=== PATIENT | female | born 1955 | race Caucasian/White ===

== ENCOUNTER → 2016-05-07 | Outpatient (CLI) | payer OTHER ==
[~2016-05-07] MED LIST: AMLO-110 PO; ASPI81TA21 PO; ATOR-26 PO; FURO-85 PO; LISI40TA PO; METO25TA56 PO; NITR0.4D6 SL; OMEG10007 PO; PLV75 PO; black cohash PO
[2016-05-07 17:59] LABS: BLOOD UREA NITROGEN 23 mg/dl (7-18); BUN/CREATININE RATIO 17.7 (10-20); CALCIUM 9.6 mg/dl (8.5-10.1); CARBON DIOXIDE 27 mmol/L (21-32); CHLORIDE 106 mmol/L (98-107); GLUCOSE 90 mg/dl (70-99); MAGNESIUM 2.1 mg/dl (1.8-2.4); SODIUM 143 mmol/L (136-145)
== END | disposition home or self-care (01) ==
LOC: C.LAB1850 16:01
PROVIDERS: ATTEND Internal Medicine
DX: G47.62 Sleep related leg cramps (principal); E66.01 Morbid (severe) obesity due to excess calories; Z68.41 Body mass index [BMI] 40.0-44.9, adult

== ENCOUNTER → 2016-10-31 | Outpatient (CLI) | payer OTHER ==
[2016-10-31 11:26] LABS: ALT/SGPT 28 U/L (12-78); AST/SGOT 14 U/L (15-37); BLOOD UREA NITROGEN 23 mg/dl (7-18); BUN/CREATININE RATIO 20.6 (10-20); CARBON DIOXIDE 27 mmol/L (21-32); CHLORIDE 109 mmol/L (98-107); CHOLESTEROL 152 mg/dl (0-200); GLUCOSE 93 mg/dl (70-99); POTASSIUM 4.3 mmol/L (3.5-5.1); SODIUM 141 mmol/L (136-145); TRIGLYCERIDES 126 mg/dl (0-150); VERY LOW DENSITY LIPOPROT CALC 25 mg/dl
[2016-10-31 11:28] LABS: ALB/GLOB RATIO 1.1 (0.9-2); ALKALINE PHOSPHATASE 46 U/L (45-117); CHOLESTEROL/HDL RATIO 2.9; HDL CHOLESTEROL 52 mg/dl; LDL CHOLESTEROL CALCULATED 75 mg/dl
== END | disposition home or self-care (01) ==
LOC: C.LABBC 09:08
PROVIDERS: ATTEND Internal Medicine
DX: E78.00 Pure hypercholesterolemia, unspecified (principal)

== ENCOUNTER → 2016-11-02 | Outpatient (CLI) | payer OTHER ==
--- NOTE | 2016-11-03 13:31 | MAMMOGRAPHY REPORT ---
BILATERAL DIGITAL SCREENING MAMMOGRAM WITH CAD: 11/02/2016 CLINICAL HISTORY: Routine screening. TECHNIQUE: Current study was also evaluated with a Computer Aided Detection (CAD) system. Bilateral CC and MLO views were obtained. COMPARISON: Comparison is made to exams dated: 11/01/2015 mammogram, 10/29/2014 mammogram, 09/19/2013 m ammogram, 09/15/2012 mammogram, 09/09/2011 mammogram, and 08/08/2010 mammogram - [facility]ter. BREAST COMPOSITION: There are scattered areas of fibroglandular density in both breasts. FINDINGS: No suspicious masses, calcifications, or areas of architectural distortion are noted in ei ther breast. There has been no significant interval change compared to prior exams. IMPRESSION: ACR BI-RADS CATEGORY 1: NEGATIVE There is no mammographic evidence of malignancy. A 1 year screening mammogram is recommended. The pa tient will receive written notification of the results. Approximately 10% of breast cancers are not detected with mammography. A negative mammographic report should not delay biopsy if a clinically suggestive mass is present. Carmenza Main M.D. ah/:11/02/2016 16:15:30 [place]: Stiven ANN(R)(M), [facility] letter sent: Normal 1/2 BI-RADS Code: ACR BI-RADS Category 1: Negative
== END | disposition home or self-care (01) ==
LOC: C.MAMM 15:00
PROVIDERS: ATTEND Internal Medicine
DX: Z12.31 Encounter for screening mammogram for malignant neoplasm of breast (principal)

== ENCOUNTER → 2017-05-01 | Outpatient (CLI) | payer OTHER ==
[2017-05-01 11:24] LABS: ALBUMIN 3.8 gm/dl (3.4-5.0); ALKALINE PHOSPHATASE 48 U/L (45-117); ALT/SGPT 35 U/L (12-78); BLOOD UREA NITROGEN 23 mg/dl (7-18); CALCIUM 8.9 mg/dl (8.5-10.1); CARBON DIOXIDE 28 mmol/L (21-32); CREATININE 1.17 mg/dl (0.60-1.20); GLUCOSE 95 mg/dl (70-99); TOTAL PROTEIN 7.6 gm/dl (6.4-8.2)
[2017-05-01 11:27] LABS: POTASSIUM 4.5 mmol/L (3.5-5.1); SODIUM 139 mmol/L (136-145)
[2017-05-01 11:28] LABS: CHOLESTEROL 161 mg/dl (0-200); LDL CHOLESTEROL CALCULATED 76 mg/dl
[2017-05-01 11:32] LABS: AST/SGOT 21 U/L (15-37)
== END | disposition home or self-care (01) ==
LOC: C.LAB1850 09:10
PROVIDERS: ATTEND Internal Medicine
DX: E78.00 Pure hypercholesterolemia, unspecified (principal); E55.9 Vitamin D deficiency, unspecified

== ENCOUNTER → 2017-11-03 | Outpatient (CLI) | payer OTHER ==
[~2017-11-03] MED LIST changes: -AMLO-110 PO; +AMLO5TAB3 PO; +ASPI-319 PO; -ASPI81TA21 PO
--- NOTE | 2017-11-04 07:56 | MAMMOGRAPHY REPORT ---
BILATERAL DIGITAL SCREENING MAMMOGRAM TOMOSYNTHESIS WITH CAD: 11/03/2017 CLINICAL HISTORY: Routine screening examination. TECHNIQUE: The study was acquired using full field digital technology and interpreted from soft copy. Breast tomosynthesis in addition to standard 2D mammography was performed. Current study was also ev aluated with a Computer Aided Detection (CAD) system. COMPARISON: Comparison is made to exams dated: 11/02/2016 mammogram, 11/01/2015 mammogram, 11/08/2014 m ammogram, 10/29/2014 mammogram, 12/26/2013 ultrasound, and 12/26/2013 mammogram - [facility]. BREAST COMPOSITION: There are scattered areas of fibroglandular density in both breasts. FINDINGS: There are several benign rim calcifications in the right breast. No suspicious mass, meri ectural distortion or cluster of microcalcifications is seen. IMPRESSION: ACR BI-RADS CATEGORY 1: NEGATIVE There is no mammographic evidence of malignancy. A 1 year screening mammogram is recommended.( 019) The patient will receive written notification of the results. Some breast cancers are not detected with mammography. A negative mammographic report should not malachi y biopsy if a clinically suggestive mass is present. Rupali Garcia M.D. ay/:11/03/2017 16:41:15 Chicken Handler: RT Bernardo(Sunita)(M), [facility] letter sent: Normal 1/2 BI-RADS Code: ACR BI-RADS Category 1: Negative
== END | disposition home or self-care (01) ==
LOC: C.MAMM 15:33
PROVIDERS: ATTEND Internal Medicine
DX: Z12.31 Encounter for screening mammogram for malignant neoplasm of breast (principal)

== ENCOUNTER → 2017-11-16 | Outpatient (CLI) | payer OTHER | END | disposition home or self-care (01) | LOC: C.LAB1850 14:52 | PROVIDERS: ATTEND Internal Medicine | DX: R79.89 Other specified abnormal findings of blood chemistry (principal) ==

== ENCOUNTER 2021-01-02 19:27 | Inpatient (IN) ==
[2021-01-03 02:05] LABS: Hematocrit (blood only) 35.9 % (37-47); Hemoglobin 12.1 g/dL (12.0-16.0); Immature Granulocytes # (auto) 0.01 K/uL (0.00-0.02); Immature Granulocytes % (auto) 0.4 %; Lymphocytes # (auto) 0.49 K/uL (1.2-3.4); Lymphocytes % (auto) 19.8 %; Mean Corpuscular Hemoglobin 31.3 pg (25-34); Mean Corpuscular Hgb Conc 33.7 g/dL (32-36); Mean Platelet Volume 11.3 fL (7.4-10.4); Monocytes # (auto) 0.19 K/uL (0.11-0.59); Monocytes % (auto) 7.7 %; Neutrophils # (auto) 1.79 K/uL (1.4-6.5); Neutrophils % (auto) 72.1 %; Platelet Count 139 K/uL (130-400); RDW Coefficient of Variation 13.4 % (11.5-14.5); RDW Standard Deviation 45.7 fL (36.4-46.3); Red Blood Count 3.86 M/uL (4.2-5.4); White Blood Count 2.48 K/uL (4.8-10.8)
[2021-01-03 02:10] LABS: Partial Thromboplastin Ratio 1.1
[2021-01-03] MEDS ORDERED: DEXAMETHASONE SOD INJ 4 MG/ML VIAL IV STA (02:11)
[2021-01-03 02:15] LABS: Alanine Aminotransferase 31 U/L (12-78); Albumin Level 3.9 gm/dl (3.4-5.0); Alkaline Phosphatase 55 U/L (45-117); Aspartate Aminotransferase 35 U/L (15-37); BUN Creatinine Ratio 17.4 (10-20); Bilirubin,Total 0.4 mg/dl (0.2-1); Blood Urea Nitrogen 33 mg/dl (7-18); Calcium 8.7 mg/dl (8.5-10.1); Carbon Dioxide 24 mmol/L (21-32); Chloride 103 mmol/L (98-107); Creatinine Clr Calc Pharmacy 33.4 ml/min; Est GFR (African American) 31.6 ml/min; Est GFR (Non-African American) 27.2 ml/min; Globulin 3.9 gm/dl (2.5-4.0); Glucose 105 mg/dl (70-99); Lipase 114 U/L (73-393); Potassium 4.1 mmol/L (3.5-5.1); Sodium 135 mmol/L (136-145); Total Protein 7.8 gm/dl (6.4-8.2); Troponin I < 0.015 ng/ml (0-0.045)
--- NOTE | 2021-01-03 03:36 | History & Physical Report ---
Date of Service January 03, 2021 Assessment & Plan (1) Pneumonia due to COVID-19 virus: Plan: 65 yo F w/ pMHx. of CAD s/p 3 stents most recently in 2015, HTN, and hypercholesterolemia who is presenting with cough and chest pain found to be COVID-19 positive. Pneumonia due to COVID-19 virus Day of illness 6 with cough, chest pain, diarrhea CXR without significant opacifications lactate 1.2, WBC 2.48 placed on airborne precautions admitted to med/surg w/ tele - titrate oxygen to saturation 92% - started Remdesivir - started Azithromycin 500 mg IV daily - started Dexamethasone 6 mg daily for 10 days - started guaifenesin Q6H - started Tessalon p. - started Albuterol HFA scheduled and PRN along with PRN duonebs Chest pain with history of CAD s/p stents initially troponin <0.015, lipase nl. - f/u AM troponin - continue DAPT - continue statin SMITHA likely due to poor oral intake and increased output with diarrhea cr. elevated at 1.92 - IVF X2bags at 125/hr. - recheck am BMP Leg cramps likely due to dehydration - Venous duplex bilaterally to rule out DVT HTN - continue chlorthalidone, Imdur, lisinopril, metoprolol - holding Lasix as patient appears dry Code: full Diet: regular DVT: Lovenox 40 Q12H History of Present Illness Chief Complaint: cough Primary Care Provider: Za Ramos MD Neida Erazo is a 65-year-old female with a past medical history of CAD s/p 3 stents most recently in 2015, HTN, and hypercholesterolemia who is presenting with cough and chest pain. She developed symptoms on Wednesday and tried 3 days of vics to help with the cough. She then developed a chest pain in her central chest that is worse with cough and she relates to her cough but also felt similar to prior to her stent being placed. The pain is worse with activity and does have some shortness of breath with it. She was driving to work at [employer] and has been getting progressively more tired which lead her to come to get evaluated in the ER. She has lost her taste and smell yesterday and had diarrhea today. She has not been able to keep much fluids down as she has felt stomach upset. She notes that she had some leg cramps in her left leg. She is not currently short of breath, denies weakness, fevers, vomiting, rash. Vaccinated against COVID-19 with [employer] in June. Allergies Allergy/AdvReac Type Severity Reaction Status Date / Time No Known Drug Allergies Allergy NKDA Verified 01/03/21 02:08 Home Medications Medication Instructions Recorded Confirmed Type aspirin 81 mg tablet,delayed 81 mg PO HS 08/04/18 01/03/21 History release cholecalciferol (vitamin D3) 125 5,000 unit PO QPM 08/04/18 01/03/21 History mcg (5,000 unit) tablet (Vitamin D3) nitroglycerin 0.4 mg sublingual 0.4 mg SUBLINGUAL UD PRN #20 tab 03/12/20 01/03/21 Rx tablet metoprolol tartrate 25 mg tablet 25 mg PO BID #180 tab 04/19/20 01/03/21 Rx oxybutynin chloride 10 mg 10 mg PO QAM #90 tab 05/27/20 01/03/21 Rx tablet,extended release 24 hr furosemide 20 mg tablet 20 mg PO QAM PRN #30 tab 09/03/20 01/03/21 Rx atorvastatin 80 mg tablet 80 mg PO HS #90 tab 09/10/20 01/03/21 Rx clopidogrel 75 mg tablet 75 mg PO QAM #90 tab 09/10/20 01/03/21 Rx chlorthalidone 25 mg tablet 25 mg PO DAILY #30 tab 12/02/20 01/03/21 Rx isosorbide mononitrate 60 mg 60 mg PO QAM #90 tab 12/13/20 01/03/21 Rx tablet,extended release 24 hr lisinopril 40 mg tablet 40 mg PO QAM #90 tab 12/13/20 01/03/21 Rx levothyroxine 50 mcg capsule 50 mcg PO DAILY #30 cap 12/20/20 01/03/21 Rx Pro [place] Joint Extra 2,000 mg PO DAILY 12/31/20 01/03/21 History Past Med/Surg History Medical History (Updated 01/03/21 @ 22:51 by Monisha Grey DO) History of angina Hyperlipidemia Hypertension On anticoagulant therapy plavix daily Osteoarthritis Surgical History History of appendectomy History of bilateral tubal ligation History of cardiac cath x3--last 2014 @ [facility] History of carpal tunnel release of both wrists History of colonoscopy History of dilatation and curettage History of heart artery stent x3-- (2) History of root canal procedure History of tooth extraction all upper teeth removed/some lower History of total abdominal hysterectomy and bilateral salpingo-oophorectomy History of wisdom tooth extraction Family History Mother Family history of reaction to anesthesia nausea/vomiting Ovarian cancer Grandmother (Maternal) Family history of diabetes mellitus Father Myocardial infarction Brother Melanoma Denies family history of Prostate cancer Breast cancer Colorectal cancer Social History Smoking Status: Never smoker Second Hand Exposure: Yes ( smoked/parents smoked); Hx Alcohol Use: No Hx Substance Use: No Preferred Language: Guyanese Communication Ability: Effective Visual Impairment: No Limitations Hearing Ability: Normal Cable Television Technician Required: No Beliefs That Will Affect Care: Orthodox marital status: Current Living Situation: Spouse current occupational status: unemployed How many Children do You have: 0 Feels Safe at Home: Yes Safety Concerns: Feels Safe At This Time Dental Care, Regularly: Yes Physical Activity Frequency: Does not Exercise Seatbelt Use: always Sunscreen Use: Yes Assistive Devices: None Review of Systems Review of Systems: All systems reviewed & are unremarkable except as noted in HPI & below Physical Exam Constitutional: well developed and well nourished; no acute distress Eyes: PERRL, conjunctivae normal, anicteric sclerae ENMT: external ear and nose normal, oropharynx normal Neck: normal visual inspection Respiratory: normal respiratory effort, lungs clear to auscultation normal respiratory effort; no respiratory distress and no labored breathing Cardiovascular: RRR, no murmur, no edema Extremities: no pedal edema Gastrointestinal (Abdomen): normal bowel sounds, soft, nontender, no hepatosplenomegaly Skin: no rashes, warm and dry Neurologic: no focal motor deficits Psychiatric: A+Ox3, euthymic affect Results & Data Results & Data ([facility]) Vital Signs (Past 12 Hours) Vital Signs Temp Pulse Pulse Resp BP BP Pulse Ox 01/03/21 02:00 92 H 20 156/95 H 93 01/03/21 00:44 97 H 17 94 01/02/21 23:59 95 H 18 138/84 93 01/02/21 19:35 37.4 C 97 H 20 153/79 H 98 CBC Results Results Complete Blood Count Results: RBC 3.86 M/uL (4.2-5.4) L 01/03/21 WBC 2.48 K/uL (4.8-10.8) L 01/03/21 Hgb 12.1 g/dL (12.0-16.0) 01/03/21 Hct 35.9 % (37-47) L 01/03/21 Plt Count 139 K/uL (130-400) 01/03/21 Chemistry (BMP) Results BMP Results: Sodium 134 mmol/L (136-145) L 01/03/21 Potassium 3.6 mmol/L (3.5-5.1) 01/03/21 Chloride 104 mmol/L (98-107) 01/03/21 BUN 31 mg/dl (7-18) H 01/03/21 Creatinine 1.62 mg/dl (0.6-1.2) H 01/03/21 Glucose 127 mg/dl (70-99) H 01/03/21 Supervising Physician Co-Signing Physician Notes Attending addendum: I have physically seen this patient, have supervised the medical residents activities, and agree with the H&P unless as otherwise noted. Assessment and Plan: Pneumonia due to COVID-19 virus with hypoxia- Admit to medical telemetry Given dexamethasone 10 mg IV by the ED Dexamethasone 6 mg IV every morning Remdesivir IV per protocol Azithromycin 500 mg IV daily Albuterol HFA 2 puffs 4 times daily, and every 2 hours as needed DuoNebs every 2 hours as needed Guaifenesin extended release 1200 mg p.o. twice daily Tessalon Perles 1 mg p.o. 3 times daily as needed Chest pain/CAD/history of stent in LAD/hypertension- The patient will be admitted to telemetry for serial cardiac enzymes, serial EKG's, cardiac rhythm monitoring and a 2-D echocardiogram with Dopplers. Continue aspirin, clopidogrel, isosorbide mono nitrate, metoprolol tartrate. SMITHA- Hold lisinopril and chlorthalidone NSS at high 25 mils per hour x2 L Repeat laboratories in a.m. Remaining orders and notations as noted Resident Activity Tracking Resident Involvement: Resident Care Provided Care Provided: Adult [facility]
[2021-01-03] MEDS ORDERED: REMDESIVIR 200 MG in SODIUM CHLORIDE 0.9% 210 ML IV STA (04:37)
--- NOTE | 2021-01-03 04:49 | Emergency Department Note ---
Impression & Plan COVID-19, Pneumonia Admit to the [facility] ED Provider Note NAME: JAMSHID FENTON AGE: 65 SEX: F ARRIVES VIA: Walk-In INFORMANT: Patient ED PROVIDER(S): Monisha Grey DO CHIEF COMPLAINT: Chest pain with deep breathing PLAN: Disposition: Admit to the [facility] Condition: Guarded MEDICAL DECISION MAKING: This is a 65-year-old female patient with a history of coronary artery disease who presents to the emergency department complaining of chest discomfort with coughing and deep breathing. Patient had a normal-appearing EKG and negative troponin. However patient does have a positive Covid test and bilateral pneumonias despite being vaccinated. Patient has a mildly elevated creatinine. Her chest x-ray is consistent with bilateral Covid pneumonia. I discussed the case with the [facility] Hospitalist and they will evaluate for further management. Triage Nursing notes reviewed and agree with them. Prior medical records reviewed Vital Signs: reviewed and unremarkable Differential diagnosis: Aortic dissection, PE, costochondritis, pneumonia, bronchitis ER treatment provided: IV Decadron Diagnostics interpreted by me: ECG: Normal sinus rhythm at a rate of [address] segment elevation or signs of ischemia. There is no ectopy. QTC is 430 ms. Cardiac Monitoring: Normal sinus rhythm at 93 Laboratory studies: See below Imaging studies: As per my interpretation Portable chest x-ray: Bilateral pulmonary opacities consistent with Covid pneumonia HPI: 65/F arrives for evaluation of chest discomfort. Patient developed a stuffy nose, cough and cold symptoms approximately 5 days ago. She states that she put Vicks on her feet because she felt so tired. Her symptoms drastically worsened today when she felt like there were a ton of bricks on her chest as she describes it. She states that her chest hurts worse when she takes a deep breath or she coughs. She also had some diarrhea and nausea. She describes her cough as nonproductive. The patient has a past medical history of coronary artery disease with 3 previous stents placed. The patient is vaccinated against COVID-19. ROS: See above HPI for pertinent positives & negatives. A total of 10 systems reviewed and were otherwise negative. PAST MEDICAL HISTORY:See Below PAST SURGICAL HISTORY:See Below FAMILY HISTORY:See Below SOCIAL HISTORY:See Below HOME MEDICATIONS:See list ALLERGIES:None VITALS:See Below PHYSICAL EXAMINATION: HEENT: Head - normocephalic and atraumatic Pupils are equal, round, and reactive to light. Extraocular eye muscles are intact, and sclera are anicteric. Nose - moist nasal mucosa without discharge. Mouth - moist buccal mucosa. Oropharynx is nonerythematous and there is no tonsillar exudate or edema noted. Neck: Supple; no JVD, nuchal rigidity, cervical lymphadenopathy, or auscultated bruits. Heart: Regular rate and rhythm. There is a normal S1 and S2 with no murmurs, clicks, or gallops appreciated. Lungs: Clear to auscultation bilaterally with no wheezes, rales, or rhonchi. Abdomen: Soft, completely nontender, nondistended, with good bowel sounds. There are no palpable pulsatile masses or hepatosplenomegaly. There is no guarding, rigidity, or rebound noted. Extremities: No evidence of cyanosis, clubbing, or edema. There are easily palpable peripheral pulses. Skin: warm and dry with good turgor and no rashes. ED COURSE: Times/Reassessments: 0005: Patient was evaluated in room A2. I donned complete PPE as there was concern for COVID-19. A complete history and physical was performed. Covid testing was performed. An order was placed for continuous cardiac monitoring. The patient was in a normal sinus rhythm at a rate of 93. A twelve-lead EKG was obtained. A portable chest x-ray was performed. The patient was given 10 mg of IV Decadron. I reviewed the results of the laboratory studies and chest x-ray findings with the patient. I discussed the case with the [facility] hospitalist and they will evaluate for further management. Monisha Grey DO Past Med/Surg History Medical History (Updated 01/03/21 @ 22:51 by Monisha Grey DO) History of angina Hyperlipidemia Hypertension On anticoagulant therapy plavix daily Osteoarthritis Surgical History History of appendectomy History of bilateral tubal ligation History of cardiac cath x3--last [address] [facility] [place] History of carpal tunnel release of both wrists History of colonoscopy History of dilatation and curettage History of heart artery stent x3-- (2) History of root canal procedure History of tooth extraction all upper teeth removed/some lower History of total abdominal hysterectomy and bilateral salpingo-oophorectomy History of wisdom tooth extraction Family History Mother Family history of reaction to anesthesia nausea/vomiting Ovarian cancer Grandmother (Maternal) Family history of diabetes mellitus Father Myocardial infarction Brother Melanoma Denies family history of Prostate cancer Breast cancer Colorectal cancer Social History Smoking Status: Never smoker Second Hand Exposure: Yes ( smoked/parents smoked); Hx Alcohol Use: No Hx Substance Use: No Preferred Language: Ivorian Communication Ability: Effective Visual Impairment: No Limitations Hearing Ability: Normal Coremaker Required: No Beliefs That Will Affect Care: Adventist marital status: Current Living Situation: Spouse current occupational status: unemployed How many Children do You have: 0 Feels Safe at Home: Yes Safety Concerns: Feels Safe At This Time Dental Care, Regularly: Yes Physical Activity Frequency: Does not Exercise Seatbelt Use: always Sunscreen Use: Yes Assistive Devices: None Allergies Allergies Allergy/AdvReac Type Severity Reaction Status Date / Time No Known Drug Allergies Allergy NKDA Verified 01/03/21 02:08 Home Meds Home Medications Medication Instructions Recorded Confirmed aspirin 81 mg tablet,delayed 81 mg PO HS 08/04/18 01/03/21 release cholecalciferol (vitamin D3) 125 5,000 unit PO QPM 08/04/18 01/03/21 mcg (5,000 unit) tablet (Vitamin D3) Pro [employer] Extra 2,000 mg PO DAILY 12/31/20 01/03/21 Previous Rx's Medication Instructions Recorded nitroglycerin 0.4 mg sublingual 0.4 mg SUBLINGUAL UD PRN #20 tab 03/12/20 tablet metoprolol tartrate 25 mg tablet 25 mg PO BID #180 tab 04/19/20 oxybutynin chloride 10 mg 10 mg PO QAM #90 tab 05/27/20 tablet,extended release 24 hr furosemide 20 mg tablet 20 mg PO QAM PRN #30 tab 09/03/20 atorvastatin 80 mg tablet 80 mg PO HS #90 tab 09/10/20 clopidogrel 75 mg tablet 75 mg PO QAM #90 tab 09/10/20 chlorthalidone 25 mg tablet 25 mg PO DAILY #30 tab 12/02/20 isosorbide mononitrate 60 mg 60 mg PO QAM #90 tab 12/13/20 tablet,extended release 24 hr lisinopril 40 mg tablet 40 mg PO QAM #90 tab 12/13/20 levothyroxine 50 mcg capsule 50 mcg PO DAILY #30 cap 12/20/20 Results & Data (ED) Vital Signs Vital Signs - 24 hr 01/02/21 23:59 01/03/21 00:44 01/03/21 02:00 Pulse Rate 97 H 92 H Pulse Rate [Apical] 95 H Respiratory Rate 18 17 20 Blood Pressure 156/95 H Blood Pressure [Right Arm] 138/84 Blood Pressure Mean 115 Blood Pressure Mean [Right Arm] 102 Blood Pressure Position [Right Arm] Sitting Pulse Oximetry 93 94 93 Oxygen Delivery Method Room Air Room Air Room Air 01/03/21 03:37 Pulse Rate Pulse Rate [Apical] 93 H Respiratory Rate 18 Blood Pressure Blood Pressure [Right Arm] 124/73 Blood Pressure Mean Blood Pressure Mean [Right Arm] 90 Blood Pressure Position [Right Arm] Pulse Oximetry 93 Oxygen Delivery Method Room Air Laboratory Data Result diagrams: 01/03/21 01:22 01/03/21 06:13 Lab Results 01/03/21 01/03/21 01/03/21 Range/Units 00:37 00:48 00:48 WBC (4.8-10.8) K/uL RBC (4.2-5.4) M/uL Hgb (12.0-16.0) g/dL Hct (37-47) % MCV (80-100) fL MCH (25-34) pg MCHC (32-36) g/dL RDW Std Deviation (36.4-46.3) fL RDW Coeff of Clare (11.5-14.5) % Plt Count (130-400) K/uL MPV (7.4-10.4) fL Immature Gran % (Auto) % Neut % (Auto) % Lymph % (Auto) % [place] % (Auto) % Eos % (Auto) % Baso % (Auto) % Neut # (Auto) (1.4-6.5) K/uL Lymph # (Auto) (1.2-3.4) K/uL [place] # (Auto) (0.11-0.59) K/uL Eos # (Auto) (0-0.5) K/uL Baso # (Auto) (0-0.2) K/uL Immature Gran # (Auto) (0.00-0.02) K/uL APTT (21.0-31.0) Seconds PTT Ratio Sodium (136-145) mmol/L Potassium (3.5-5.1) mmol/L Chloride (98-107) mmol/L Carbon Dioxide (21-32) mmol/L Anion Gap (3-11) BUN (7-18) mg/dl Creatinine (0.6-1.2) mg/dl Est Cr Clr Drug Dosing ml/min Est GFR ( Amer) ml/min Est GFR (Non-Af Amer) ml/min BUN/Creatinine Ratio (10-20) Glucose (70-99) mg/dl Lactate (0.4-2.0) mmol/L Calcium (8.5-10.1) mg/dl Total Bilirubin (0.2-1) mg/dl AST (15-37) U/L ALT (12-78) U/L Alkaline Phosphatase (45-117) U/L Troponin I (0-0.045) ng/ml Total Protein (6.4-8.2) gm/dl Albumin (3.4-5.0) gm/dl Globulin (2.5-4.0) gm/dl Albumin/Globulin Ratio (0.9-2) Lipase (73-393) U/L Specimen Hemolysis COVID-19 Eval Order Covid19 at [facility] SARS-CoV-2 (PCR) Cancelled POSITIVE A* 01/03/21 01/03/21 01/03/21 Range/Units 01:22 01:22 01:22 WBC 2.48 L (4.8-10.8) K/uL RBC 3.86 L (4.2-5.4) M/uL Hgb 12.1 (12.0-16.0) g/dL Hct 35.9 L (37-47) % MCV 93.0 (80-100) fL MCH 31.3 (25-34) pg MCHC 33.7 (32-36) g/dL RDW Std Deviation 45.7 (36.4-46.3) fL RDW Coeff of Clare 13.4 (11.5-14.5) % Plt Count 139 (130-400) K/uL MPV 11.3 H (7.4-10.4) fL Immature Gran % (Auto) 0.4 % Neut % (Auto) 72.1 % Lymph % (Auto) 19.8 % [place] % (Auto) 7.7 % Eos % (Auto) 0.0 % Baso % (Auto) 0.0 % Neut # (Auto) 1.79 (1.4-6.5) K/uL Lymph # (Auto) 0.49 L (1.2-3.4) K/uL [place] # (Auto) 0.19 (0.11-0.59) K/uL Eos # (Auto) 0.00 (0-0.5) K/uL Baso # (Auto) 0.00 (0-0.2) K/uL Immature Gran # (Auto) 0.01 (0.00-0.02) K/uL APTT 28.0 (21.0-31.0) Seconds PTT Ratio 1.1 Sodium 135 L (136-145) mmol/L Potassium 4.1 (3.5-5.1) mmol/L Chloride 103 (98-107) mmol/L Carbon Dioxide 24 (21-32) mmol/L Anion Gap 8.0 (3-11) BUN 33 H (7-18) mg/dl Creatinine 1.92 H (0.6-1.2) mg/dl Est Cr Clr Drug Dosing 33.4 ml/min Est GFR ( Amer) 31.6 ml/min Est GFR (Non-Af Amer) 27.2 ml/min BUN/Creatinine Ratio 17.4 (10-20) Glucose 105 H (70-99) mg/dl Lactate (0.4-2.0) mmol/L Calcium 8.7 (8.5-10.1) mg/dl Total Bilirubin 0.4 (0.2-1) mg/dl AST 35 (15-37) U/L ALT 31 (12-78) U/L Alkaline Phosphatase 55 (45-117) U/L Troponin I < 0.015 (0-0.045) ng/ml Total Protein 7.8 (6.4-8.2) gm/dl Albumin 3.9 (3.4-5.0) gm/dl Globulin 3.9 (2.5-4.0) gm/dl Albumin/Globulin Ratio 1.0 (0.9-2) Lipase 114 (73-393) U/L Specimen Hemolysis COVID-19 Eval Order SARS-CoV-2 (PCR) 01/03/21 Range/Units 03:13 WBC (4.8-10.8) K/uL RBC (4.2-5.4) M/uL Hgb (12.0-16.0) g/dL Hct (37-47) % MCV (80-100) fL MCH (25-34) pg MCHC (32-36) g/dL RDW Std Deviation (36.4-46.3) fL RDW Coeff of Clare (11.5-14.5) % Plt Count (130-400) K/uL MPV (7.4-10.4) fL Immature Gran % (Auto) % Neut % (Auto) % Lymph % (Auto) % [place] % (Auto) % Eos % (Auto) % Baso % (Auto) % Neut # (Auto) (1.4-6.5) K/uL Lymph # (Auto) (1.2-3.4) K/uL [place] # (Auto) (0.11-0.59) K/uL Eos # (Auto) (0-0.5) K/uL Baso # (Auto) (0-0.2) K/uL Immature Gran # (Auto) (0.00-0.02) K/uL APTT (21.0-31.0) Seconds PTT Ratio Sodium (136-145) mmol/L Potassium (3.5-5.1) mmol/L Chloride (98-107) mmol/L Carbon Dioxide (21-32) mmol/L Anion Gap (3-11) BUN (7-18) mg/dl Creatinine (0.6-1.2) mg/dl Est Cr Clr Drug Dosing ml/min Est GFR ( Amer) ml/min Est GFR (Non-Af Amer) ml/min BUN/Creatinine Ratio (10-20) Glucose (70-99) mg/dl Lactate 1.2 (0.4-2.0) mmol/L Calcium (8.5-10.1) mg/dl Total Bilirubin (0.2-1) mg/dl AST (15-37) U/L ALT (12-78) U/L Alkaline Phosphatase (45-117) U/L Troponin I (0-0.045) ng/ml Total Protein (6.4-8.2) gm/dl Albumin (3.4-5.0) gm/dl Globulin (2.5-4.0) gm/dl Albumin/Globulin Ratio (0.9-2) Lipase (73-393) U/L Specimen Hemolysis COVID-19 Eval Order SARS-CoV-2 (PCR) Administered Medications Albuterol (Albuterol Hfa 8 Gm Inhaler) 2 puffs INH QIDR YAHAIRA Stop: 02/02/21 10:59 Last Admin: 01/03/21 19:27 Dose: 2 puffs Documented by: [id number] Admin: 01/03/21 15:55 Dose: 2 puffs Documented by: [id number] Admin: 01/03/21 10:42 Dose: 2 puffs Documented by: [id number] Aspirin (Aspirin 81 Mg Ectab) 81 mg PO HS [facility] Stop: 02/02/21 20:59 Last Admin: 01/03/21 20:23 Dose: 81 mg Documented by: [id number] Atorvastatin Calcium (Atorvastatin 40 Mg Tab) 80 mg PO HS [facility] Stop: 02/02/21 20:59 Last Admin: 01/03/21 20:20 Dose: 80 mg Documented by: [id number] Benzonatate (Benzonatate 100 Mg Capsule) 100 mg PO TID [facility] Stop: 02/02/21 08:59 Last Admin: 01/03/21 20:20 Dose: 100 mg Documented by: [id number] Admin: 01/03/21 14:50 Dose: Not Given Documented by: [id number] Admin: 01/03/21 14:00 Dose: 100 mg Documented by: [id number] Chlorthalidone (Chlorthalidone 25 Mg Tab) 25 mg PO DAILY [facility] Stop: 02/02/21 08:59 Last Admin: 01/03/21 08:44 Dose: 25 mg Documented by: [id number] Clopidogrel Bisulfate (Clopidogrel Bisulfate 75 Mg Tab) 75 mg PO QAM YAHAIRA Stop: 02/02/21 08:59 Last Admin: 01/03/21 08:47 Dose: 75 mg Documented by: [id number] Enoxaparin Sodium (Enoxaparin Inj 40 Mg/0.4 Ml Syr) 40 mg SQ Q12H [facility] Stop: 02/02/21 07:59 Last Admin: 01/03/21 20:23 Dose: 40 mg Documented by: [id number] Admin: 01/03/21 08:51 Dose: 40 mg Documented by: [id number] Guaifenesin/Dextromethorphan (Guaifenesin/Dextrom Syrup 200mg/20mg 10ml Udc) 10 ml PO Q6H PRN PRN Reason: Cough Stop: 02/02/21 07:25 Last Admin: 01/03/21 20:20 Dose: 10 ml Documented by: [id number] Azithromycin 500 mg/ Dextrose 255 mls @ 127.5 mls/hr IV Q24H YAHAIRA Stop: 01/10/21 07:59 Last Infusion: 01/03/21 12:29 Dose: 0 mls/hr Documented by: [id number] Admin: 01/03/21 08:47 Dose: 127.5 mls/hr Documented by: [id number] Isosorbide Mononitrate (Isosorbide [place] Extended Rel 60 Mg Tabcr) 60 mg PO QAM YAHAIRA Stop: 02/02/21 08:59 Last Admin: 01/03/21 08:45 Dose: 60 mg Documented by: [id number] Levothyroxine Sodium (Levothyroxine Sodium 50 Mcg Tablet) 50 mcg PO DAILYBB [facility] Stop: 02/02/21 07:44 Last Admin: 01/03/21 08:47 Dose: 50 mcg Documented by: [id number] Metoprolol Tartrate (Metoprolol Tartrate 25 Mg Tab) 12.5 mg PO BID YAHAIRA Stop: 02/02/21 20:59 Last Admin: 01/03/21 20:21 Dose: 12.5 mg Documented by: [id number] Oxybutynin Chloride (Oxybutynin Chloride Xl 5 Mg Tabcr) 10 mg PO QAM YAHAIRA Stop: 02/02/21 08:59 Last Admin: 01/03/21 08:45 Dose: 10 mg Documented by: [id number] Sodium Chloride (Sodium Chloride 0.9% 10ml Flush) 30 ml IV Q24H YAHAIRA Stop: 01/07/21 13:01 Last Admin: 01/03/21 07:30 Dose: 30 ml Documented by: [id number] Vitamin D (Cholecalciferol 1,000 Units 25 Mcg Tab) 5,000 units PO QPM YAHAIRA Stop: 02/02/21 20:59 Last Admin: 01/03/21 20:22 Dose: 5,000 units Documented by: [id number] Vitamin D (Cholecalciferol 1,000 Units 25 Mcg Tab) 1,000 units PO QAM YAHAIRA Stop: 02/02/21 08:59 Last Admin: 01/03/21 08:46 Dose: 1,000 units Documented by: [id number] Zinc Sulfate (Zinc Sulfate 220 Mg Capsule) 220 mg PO QAM YAHAIRA Stop: 02/02/21 08:59 Last Admin: 01/03/21 08:45 Dose: 220 mg Documented by: [id number] Discontinued Medications Dexamethasone (Dexamethasone Sod Inj 4 Mg/Ml Vial) 10 mg IV NOW STA Stop: 01/03/21 02:12 Last Admin: 01/03/21 02:27 Dose: 10 mg Documented by: [id number] Remdesivir 200 mg/ Sodium (Chloride) 250 mls @ 125 mls/hr IV ONE STA; Protocol Stop: 01/03/21 06:36 Last Infusion: 01/03/21 08:30 Dose: 0 mls/hr Documented by: [id number] Admin: 01/03/21 06:20 Dose: 125 mls/hr Documented by: [id number] Sodium Chloride (Nss 1000ml) 1,000 mls @ 125 mls/hr IV .Q8H YAHAIRA Stop: 01/03/21 23:25 Last Admin: 01/03/21 16:59 Dose: 125 mls/hr Documented by: [id number] Infusion: 01/03/21 16:59 Dose: 125 mls/hr Documented by: [id number] Admin: 01/03/21 09:08 Dose: 125 mls/hr Documented by: [id number] Metoprolol Tartrate (Metoprolol Tartrate 25 Mg Tab) 25 mg PO BID YAHAIRA Stop: 02/02/21 08:59 Last Admin: 01/03/21 08:45 Dose: 25 mg Documented by: [id number] Discharge Plan Visit Data Chief Complaint: Chest Pain Stated Complaint: CHEST PAINS, TIRED, COUGH ED Provider: Monisha Grey Discharge Problem: COVID-19, Pneumonia Patient Disposition: Admitted As Inpatient Discharge Instructions Interventions: ED Discharge Assessment Last Done: 01/03/21 12:46 Discharge Problem: Pneumonia Qualifiers: Pneumonia type: due to unspecified organism Laterality: bilateral Lung location: unspecified part of lung Qualified Code(s): J18.9 - Pneumonia, unspecified organism
--- NOTE | 2021-01-03 06:35 | Ultrasound Report ---
BILATERAL LOWER EXTREMITY VENOUS DOPPLER CLINICAL HISTORY: leg pain COMPARISON STUDY: Bilateral lower extremity venous Doppler ultrasound October 10, 2018. TECHNIQUE: Sonography of the deep venous system of the bilateral lower extremities was performed. Co mpression and augmentation were evaluated. FINDINGS: The bilateral common femoral, superficial femoral and popliteal veins were compressible. A ugmentation was normal. Flow was shown within the deep calf vessels. IMPRESSION: No evidence of deep venous thrombus within the bilateral lower extremities. ACT 112: Negative or not required by law. Electronically signed by: Chidi Rodarte M.D. 01/03/2021 6:34 AM
--- NOTE | 2021-01-03 06:40 | XRay Report ---
XR chest 2V PA/lateral CLINICAL HISTORY: Chest Pain COMPARISON STUDY: Chest radiograph March 09, 2011. FINDINGS: Lung volumes are mildly diminished. There is no pneumothorax or pleural effusion. Cardiac s ize is at the upper limits of normal. Mediastinal contours are normal. There is no evidence for pulmo nary edema. There is mild interstitial thickening. There may be a few patchy bilateral opacities. IMPRESSION: A few possible patchy bilateral opacities. An infectious process cannot be excluded. ACT 112: Negative or not required by law. Electronically signed by: Chidi Rodarte M.D. 01/03/2021 6:38 AM
[2021-01-03 06:59] LABS: BUN Creatinine Ratio 19.2 (10-20); Calcium 8.9 mg/dl (8.5-10.1); Creatinine Clr Calc Pharmacy 39.6 ml/min; Est GFR (African American) 38.8 ml/min; Est GFR (Non-African American) 33.4 ml/min; Potassium 3.6 mmol/L (3.5-5.1)
[2021-01-03] MEDS ORDERED: ALBUT/IPRATROP 3MG/0.5MG NEB 3 ML VIAL NEB PRN (07:26)
[2021-01-03] MEDS ORDERED: NITROGLYCERIN SL 0.4 MG/TAB TAB SL PRN (07:26)
[2021-01-03] MEDS ORDERED: POLYETHYLENE (MIRALAX) 17 GM PACK PO PRN (07:26)
[2021-01-03] MEDS ORDERED: ONDANSETRON 4 MG OD TAB PO PRN (07:26)
[2021-01-03] MEDS ORDERED: ALBUTEROL HFA 8 GM INHALER INH PRN (07:26)
[2021-01-03] MEDS ORDERED: ACETAMINOPHEN 325 MG TAB PO PRN (07:26)
[2021-01-03] MEDS: SODIUM CHLORIDE 0.9% 10ML FLUSH IV SCH (07:30)
[2021-01-03] MEDS: OXYBUTYNIN CHLORIDE XL 5 MG TABCR PO SCH (08:45)
[2021-01-03] MEDS: ZINC SULFATE 220 MG CAPSULE PO SCH (08:45)
[2021-01-03] MEDS: ISOSORBIDE MONO EXTENDED REL 60 MG TABCR PO SCH (08:45)
[2021-01-03] MEDS: CHOLECALCIFEROL 1,000 UNITS 25 MCG TAB PO SCH ×2 (08:46→20:22)
[2021-01-03] MEDS: LEVOTHYROXINE SODIUM 50 MCG TABLET PO SCH (08:47)
[2021-01-03] MEDS: AZITHROMYCIN 500 MG in DEXTROSE 5% 250 ML IV SCH (08:47)
[2021-01-03] MEDS: CLOPIDOGREL BISULFATE 75 MG TAB PO SCH (08:47)
[2021-01-03] MEDS: ENOXAPARIN INJ 40 MG/0.4 ML SYR SQ SCH ×2 (08:51→20:23)
[2021-01-03] MEDS ORDERED: [UNRECOGNIZED DRUG - OTHER] PO SCH (09:00)
[2021-01-03] MEDS ORDERED: lisinopril 40 MG TAB PO SCH (09:00)
[2021-01-03] MEDS ORDERED: METOPROLOL TARTRATE 25 MG TAB PO SCH (09:00)
[2021-01-03] MEDS ORDERED: CHLORTHALIDONE 25 MG TAB PO SCH (09:00)
--- NOTE | 2021-01-03 09:01 | Electrocardiogram Report ---
Test Reason : Blood Pressure : / mmHG Vent. Rate : 090 BPM Atrial Rate : 090 BPM P-R Int : 158 ms QRS Dur : 084 ms QT Int : 352 ms P-R-T Axes : 041 014 003 degrees QTc Int : 430 ms Poor data quality, interpretation may be adversely affected Normal sinus rhythm Low voltage QRS Abnormal ECG When compared with ECG of 12-MAR-2011 06:33, No significant change Confirmed by Srinath Molina ([id number] on 01/03/2021 9:01:08 AM Referred By: REFERRED SELF Confirmed By:Srinath Molina
[2021-01-03] MEDS: SODIUM CHLORIDE 0.9% 1000ML 1,000 ML IV SCH ×2 (09:08→16:59)
[2021-01-03] MEDS: ALBUTEROL HFA 8 GM INHALER INH SCH ×3 (10:42→19:27)
[2021-01-03] MEDS: BENZONATATE 100 MG CAPSULE PO SCH ×3 (14:00→20:20)
[2021-01-03] MEDS: guaiFENesin/DEXTROM SYRUP 200MG/20MG 10ML UDC PO PRN (20:20)
[2021-01-03] MEDS: ATORVASTATIN 40 MG TAB PO SCH (20:20)
[2021-01-03] MEDS: METOPROLOL TARTRATE 25 MG TAB PO SCH (20:21)
[2021-01-03] MEDS: ASPIRIN 81 MG ECTAB PO SCH (20:23)
--- NOTE | 2021-01-04 03:58 | Communication Note ---
Date of Service: January 03, 2021 Checked on patient later in the day today after she was admitted to airborne isolation room from the ER late this am. Pt was resting comfortably, talking on the phone w/ her . c/o cough and dyspnea. no substernal chest pain. has lost both her taste & sense of smell. she is requiring 3 L NC O2. she is about 6 days into her illness, perhaps slightly longer. she is fully vaccinated against COVID. VSS, afebrile gen - obese, pleasant, NAD neck - no JVD mouth - MMM heart - RRR, s1 s2 lungs - mild bibasilar rales, no wheeze abd - soft NT ND BS+ ext - no edema labs reviewed - Cr at presentation 1.9, now 1.6 baseline Cr 1.1 mild leukopenia mild thrombocytopenia A/P: 1. acute hypoxic resp failure 2nd COVID-19 pneumonia 2. morbid obesity, BMI 46 3. CAD - quiescent at this time 4. HTN 5. hyperlipidemia 6. mild leukopenia and thrombocytopenia 2nd to COVID-19 illness cont steroids cont Remdesivir can stop fluids tonight BMP am discussed pulmonary toilet, proning or side positioning, etc supportive care Andi Wright MD
--- NOTE | 2021-01-04 05:37 | Billing Data ---
Date of Service January 04, 2021 Coding Level of Care Code 26915 Initial Inpt Care Lvl 3
[2021-01-04] MEDS: LEVOTHYROXINE SODIUM 50 MCG TABLET PO SCH (06:00)
[2021-01-04] MEDS: ALBUTEROL HFA 8 GM INHALER INH SCH ×2 (07:37→11:32)
[2021-01-04] MEDS: AZITHROMYCIN 500 MG in DEXTROSE 5% 250 ML IV SCH (09:47)
[2021-01-04] MEDS: ENOXAPARIN INJ 40 MG/0.4 ML SYR SQ SCH ×2 (09:48→21:41)
[2021-01-04] MEDS: METOPROLOL TARTRATE 25 MG TAB PO SCH ×2 (09:48→21:42)
[2021-01-04] MEDS: ISOSORBIDE MONO EXTENDED REL 60 MG TABCR PO SCH (09:48)
[2021-01-04] MEDS: OXYBUTYNIN CHLORIDE XL 5 MG TABCR PO SCH (09:49)
[2021-01-04] MEDS: ZINC SULFATE 220 MG CAPSULE PO SCH (09:50)
[2021-01-04] MEDS: dexAMETHasone 6 MG in SYRINGE 0 ML IV SCH (09:50)
[2021-01-04] MEDS: CHOLECALCIFEROL 1,000 UNITS 25 MCG TAB PO SCH ×2 (09:51→21:42)
[2021-01-04] MEDS: CLOPIDOGREL BISULFATE 75 MG TAB PO SCH (09:51)
[2021-01-04] MEDS: BENZONATATE 100 MG CAPSULE PO SCH ×3 (12:01→21:37)
[2021-01-04] MEDS: REMDESIVIR 100 MG in SODIUM CHLORIDE 0.9% 230 ML IV SCH (12:15)
[2021-01-04 12:22] LABS: Hematocrit (blood only) 33.7 % (37-47); Hemoglobin 11.1 g/dL (12.0-16.0); Mean Corpuscular Hemoglobin 30.4 pg (25-34); Mean Corpuscular Hgb Conc 32.9 g/dL (32-36); Mean Corpuscular Volume 92.3 fL (80-100); Mean Platelet Volume 10.8 fL (7.4-10.4); Platelet Count 155 K/uL (130-400); RDW Coefficient of Variation 13.2 % (11.5-14.5); RDW Standard Deviation 44.6 fL (36.4-46.3); Red Blood Count 3.65 M/uL (4.2-5.4); White Blood Count 5.04 K/uL (4.8-10.8)
[2021-01-04 12:44] LABS: BUN Creatinine Ratio 23.1 (10-20); Calcium 8.7 mg/dl (8.5-10.1); Creatinine Clr Calc Pharmacy 39.5 ml/min; Est GFR (African American) 46.2 ml/min; Est GFR (Non-African American) 39.9 ml/min; Potassium 3.9 mmol/L (3.5-5.1)
[2021-01-04] MEDS: SODIUM CHLORIDE 0.9% 10ML FLUSH IV SCH (14:37)
--- NOTE | 2021-01-04 20:15 | Hospitalist Progress Note ---
Date of Service January 04, 2021 Assessment & Plan (1) Pneumonia due to COVID-19 virus: Plan: Unchanged status since admission - certainly no worse. ~day 7 of illness. plan - * Remdesivir - day #2; ast/alt stable; repeat in 2 days * day #2 of azithromycin 500 mg IV daily; can decrease to 250mg for the last 3 days * cont Dexamethasone 6 mg daily for up to 10 days; day #2 today * pulmonary toilet - flutter ordered; cont incentive * albuterol prn * encouraged proning or, if unable to prone, side positioning; cont sitting in chair * o2 support to maintain sats >92% * DVT proph - lovenox BID * airborne isolation (2) Acute respiratory failure with hypoxia: Plan: 2nd to #1 no evidence of complicating bacterial infection (CXR does not suggest such, procal 0) no evidence of complicating CHF see #1 above (3) CAD (coronary artery disease): Plan: no ischemic symptoms at this time cont asa, statin, plavix, imdur, metoprolol (4) Hypertension: Plan: controlled cont current meds except cont to hold TYLER and chlorthalidone due to recent SMITHA (5) Hypercholesterolemia: Plan: statin (6) Acute kidney injury: Plan: resolving Cr today 1.4 Peak Cr 1.9 baseline Cr 1.1/1.2 SMITHA likely 2nd to poor oral intake in the setting of #1 fluids have been stopped (7) Chronic kidney disease, stage 3a: Plan: baseline CrCl upper 40s and 50s see #6 above repeat BMP in 48 hours (8) Acquired hypothyroidism: Plan: TSH 06/2020 wnl cont synthroid (9) DVT prophylaxis: Plan: lovenox 40mg BID Plan: updated pt's this evening by phone Admission and Anticipated Discharge Date Admission Date: January 03, 2021 Subjective tele stable overnight pt sitting in chair during the encounter states she is eating fair taste/smell modestly better today but still not normal still coughing and still with PURVIS she c/o chest tightness with ambulation no new complaints otherwise did not sleep well last night Review of Systems Review of Systems: gen - no fevers or chills pulm - no sputum, no wheezing GI - no abd pain Physical Exam Physical Exam: gen - NAD, coughing at times; sitting in chair neck - no obvious JVD mouth - MMM heart - RRR, s1 s2, no murmur lungs - mild bibasilar fine rales, no increased work of breathing abd - soft NT ND BS+ ext - no edema; pulses 2+ b/l Results & Data Results & Data ([facility]) Vital Signs (Past 12 Hours) Vital Signs Temp Pulse Pulse Resp BP Pulse Ox 01/04/21 15:47 37.0 C 64 20 108/70 94 01/04/21 14:19 77 01/04/21 11:35 78 16 96 01/04/21 11:30 36.6 C 84 18 135/76 97 01/04/21 10:09 80 125/84 Laboratory Results Laboratory Results - last 24 hr 01/04/21 01/04/21 01/04/21 11:57 11:57 11:57 WBC 5.04 RBC 3.65 L Hgb 11.1 L Hct 33.7 L MCV 92.3 MCH 30.4 MCHC 32.9 RDW Std Deviation 44.6 RDW Coeff of Clare 13.2 Plt Count 155 MPV 10.8 H Sodium 138 Potassium 3.9 Chloride 106 Carbon Dioxide 24 Anion Gap 8.0 BUN 32 H Creatinine 1.40 H Est Cr Clr Drug Dosing 39.5 Est GFR ( Amer) 46.2 Est GFR (Non-Af Amer) 39.9 BUN/Creatinine Ratio 23.1 H Glucose 115 H Calcium 8.7 AST 28 ALT 32 Procalcitonin < 0.05 PG Care Time/CCT Total # of Minutes Spent Total Time Spent with Patient: Total time spent is greater than 50% in coordination of care (as documented) at patient's floor/unit and/or counseling patient: Coding Level of Care Code 87918 Subseq Hosp Care Lvl 2 Diagnoses Pneumonia due to COVID-19 virus U07.1; J12.82 Acute respiratory failure with hypoxia J96.01 CAD (coronary artery disease) I25.10 Hypertension I10 Hypercholesterolemia E78.00 Acute kidney injury N17.9 Chronic kidney disease, stage 3a N18.31 DVT prophylaxis Z29.9 Acquired hypothyroidism E03.9
[2021-01-04] MEDS: guaiFENesin/DEXTROM SYRUP 200MG/20MG 10ML UDC PO PRN (21:40)
[2021-01-04] MEDS: ATORVASTATIN 40 MG TAB PO SCH (21:41)
[2021-01-04] MEDS: ASPIRIN 81 MG ECTAB PO SCH (21:41)
[2021-01-04] MEDS: guaiFENesin 600 MG TABCR PO SCH (21:49)
[2021-01-05] MEDS: MELATONIN 3 MG TAB PO SCH ×2 (03:00→20:48)
[2021-01-05] MEDS: LEVOTHYROXINE SODIUM 50 MCG TABLET PO SCH (05:36)
--- NOTE | 2021-01-05 07:02 | Electrocardiogram Report ---
Test Reason : Blood Pressure : / mmHG Vent. Rate : 054 BPM Atrial Rate : 054 BPM P-R Int : 158 ms QRS Dur : 084 ms QT Int : 458 ms P-R-T Axes : 030 027 033 degrees QTc Int : 434 ms Sinus bradycardia with sinus arrhythmia Low voltage QRS Borderline ECG When compared with ECG of 02-JAN-2021 19:44, Vent. rate has decreased BY 36 BPM Minimal criteria for Anterior infarct are no longer Present Nonspecific T wave abnormality has improved Confirmed by Cayden Kasper ([id number] on 01/05/2021 7:02:44 AM Referred By: REFERRED SELF Confirmed By:Cayden Kasper
[2021-01-05] MEDS: dexAMETHasone 6 MG in SYRINGE 0 ML IV SCH (09:15)
[2021-01-05] MEDS: CHOLECALCIFEROL 1,000 UNITS 25 MCG TAB PO SCH ×2 (09:15→20:57)
[2021-01-05] MEDS: guaiFENesin 600 MG TABCR PO SCH ×2 (09:16→20:57)
[2021-01-05] MEDS: OXYBUTYNIN CHLORIDE XL 5 MG TABCR PO SCH (09:16)
[2021-01-05] MEDS: CLOPIDOGREL BISULFATE 75 MG TAB PO SCH (09:16)
[2021-01-05] MEDS: METOPROLOL TARTRATE 25 MG TAB PO SCH ×2 (09:17→20:57)
[2021-01-05] MEDS: ISOSORBIDE MONO EXTENDED REL 60 MG TABCR PO SCH (09:17)
[2021-01-05] MEDS: ZINC SULFATE 220 MG CAPSULE PO SCH (09:18)
[2021-01-05] MEDS: ENOXAPARIN INJ 40 MG/0.4 ML SYR SQ SCH ×2 (09:18→20:49)
[2021-01-05] MEDS: guaiFENesin/DEXTROM SYRUP 200MG/20MG 10ML UDC PO PRN ×2 (09:19→20:49)
[2021-01-05] MEDS: AZITHROMYCIN 250 MG TAB PO SCH (09:41)
[2021-01-05] MEDS: BENZONATATE 100 MG CAPSULE PO SCH ×3 (12:06→20:48)
[2021-01-05] MEDS: REMDESIVIR 100 MG in SODIUM CHLORIDE 0.9% 230 ML IV SCH (12:06)
[2021-01-05] MEDS: SODIUM CHLORIDE 0.9% 10ML FLUSH IV SCH (14:15)
[2021-01-05] MEDS ORDERED: FUROSEMIDE 20 MG TAB PO ONE (18:30)
[2021-01-05] MEDS: ATORVASTATIN 40 MG TAB PO SCH (20:56)
[2021-01-05] MEDS: ASPIRIN 81 MG ECTAB PO SCH (20:56)
--- NOTE | 2021-01-05 23:46 | Hospitalist Progress Note ---
Date of Service January 05, 2021 Assessment & Plan (1) Pneumonia due to COVID-19 virus: Plan: Largely unchanged symptomatically and unchanged O2 requirement. Clinically her rales are modestly worse on exam today however. She is about day 8 of her illness. Of note - this is a "breakthrough case" - patient was fully vaccinated. plan - * Remdesivir - day #3; last ast/alt stable; repeat ast/alt in am * day #3 of azithromycin; plan 5 days in total * cont Dexamethasone 6 mg daily for up to 10 days; day #3 today * pulmonary toilet - flutter ordered; cont incentive * albuterol prn - she wants to try this again * encouraged proning or side positioning; cont sitting in chair and ambulation * o2 support to maintain sats >92% * DVT proph - lovenox BID * airborne isolation * lasix trial and if helpful will redose again tomorrow * PT, OT ordered (2) Acute respiratory failure with hypoxia: Plan: 2nd to #1 no evidence of complicating bacterial infection (CXR does not suggest such, procal 0) no evidence of complicating CHF see #1 above (3) CAD (coronary artery disease): Plan: no ischemic symptoms at this time cont asa, statin, plavix, imdur, metoprolol (4) Hypertension: Plan: controlled cont current meds except cont to hold TYLER and chlorthalidone due to recent SMITHA and BPs have been normal without them repeat BMP am (5) Hypercholesterolemia: Plan: statin (6) Acute kidney injury: Plan: resolving most recent Cr was 1.4 Peak Cr 1.9 baseline Cr 1.1/1.2 SMITHA likely 2nd to poor oral intake in the setting of #1 fluids have been stopped repeat BMP in am (7) Chronic kidney disease, stage 3a: Plan: baseline CrCl upper 40s and 50s see #6 above repeat BMP am (8) Acquired hypothyroidism: Plan: TSH 06/2020 wnl cont synthroid (9) DVT prophylaxis: Plan: lovenox 40mg BID Plan: updated pt's 01/04 and 01/05 he is experiencing COVID symptoms - awaiting testing PT, OT orders placed Admission and Anticipated Discharge Date Admission Date: January 03, 2021 Subjective tele stable overnight patient reported "I think I am feeling a little better today" still having severe bronchial cough with sputum production (yellow) she thinks that the albuterol helped her cough but it did cause some coughing immediately after taking it PURVIS remains but mild eating well taste/smell still impaired when coughing her central chest hurts but no pleuritic type pain Review of Systems Review of Systems: gen - no fevers or chills psych - slept better last pm CV - no orthopnea pulm - no hemoptysis GI - no abd pain, nausea or emesis Physical Exam Physical Exam: gen - NAD, coughing at times - bronchial in nature/sound; sitting in chair neck - no obvious JVD mouth - MMM heart - RRR, s1 s2, no murmur lungs - bibasilar fine rales - worse today; they are heard higher up posteriorly today, no increased work of breathing abd - soft NT ND BS+ ext - trace edema b/l; pulses 2+ b/l psych - a/o x 3 Results & Data Results & Data ([facility]) Vital Signs (Past 12 Hours) Vital Signs Temp Pulse Pulse Resp BP Pulse Ox 01/05/21 23:44 57 L 01/05/21 22:48 36.7 C 58 L 18 131/79 94 01/05/21 20:09 36.7 C 60 18 172/98 H 95 01/05/21 18:17 67 18 91 01/05/21 16:58 36.8 C 62 20 122/83 95 01/05/21 15:00 36.6 C 80 18 108/78 94 01/05/21 14:20 57 L 01/05/21 12:00 36.9 C 74 18 108/69 94 PG Care Time/CCT Total # of Minutes Spent Total Time Spent with Patient: Total time spent is greater than 50% in coordination of care (as documented) at patient's floor/unit and/or counseling patient: Coding Level of Care Code 10125 Subseq Hosp Care Lvl 2 Diagnoses Pneumonia due to COVID-19 virus U07.1; J12.82 Acute respiratory failure with hypoxia J96.01 CAD (coronary artery disease) I25.10 Hypertension I10 Hypercholesterolemia E78.00 Acute kidney injury N17.9 Chronic kidney disease, stage 3a N18.31 Acquired hypothyroidism E03.9 DVT prophylaxis Z29.9
[2021-01-06] MEDS: LEVOTHYROXINE SODIUM 50 MCG TABLET PO SCH (05:27)
[2021-01-06 08:13] LABS: BUN Creatinine Ratio 27.4 (10-20); Calcium 8.8 mg/dl (8.5-10.1); Creatinine Clr Calc Pharmacy 48.9 ml/min; Est GFR (African American) 50.1 ml/min; Est GFR (Non-African American) 43.2 ml/min; Magnesium 1.8 mg/dl (1.8-2.4); Potassium 3.9 mmol/L (3.5-5.1)
[2021-01-06] MEDS: METOPROLOL TARTRATE 25 MG TAB PO SCH ×2 (08:26→22:00)
[2021-01-06] MEDS: dexAMETHasone 6 MG in SYRINGE 0 ML IV SCH (08:26)
[2021-01-06] MEDS: ZINC SULFATE 220 MG CAPSULE PO SCH (08:26)
[2021-01-06] MEDS: AZITHROMYCIN 250 MG TAB PO SCH (08:26)
[2021-01-06] MEDS: guaiFENesin 600 MG TABCR PO SCH ×2 (08:27→20:25)
[2021-01-06] MEDS: CHOLECALCIFEROL 1,000 UNITS 25 MCG TAB PO SCH ×2 (08:27→20:21)
[2021-01-06] MEDS: CLOPIDOGREL BISULFATE 75 MG TAB PO SCH (08:27)
[2021-01-06] MEDS: ISOSORBIDE MONO EXTENDED REL 60 MG TABCR PO SCH (08:28)
[2021-01-06] MEDS: OXYBUTYNIN CHLORIDE XL 5 MG TABCR PO SCH (08:28)
[2021-01-06] MEDS: ENOXAPARIN INJ 40 MG/0.4 ML SYR SQ SCH ×2 (08:28→20:19)
[2021-01-06] MEDS: BENZONATATE 100 MG CAPSULE PO SCH ×3 (08:28→20:20)
[2021-01-06] MEDS: guaiFENesin/DEXTROM SYRUP 200MG/20MG 10ML UDC PO PRN ×2 (10:13→20:22)
[2021-01-06] MEDS: REMDESIVIR 100 MG in SODIUM CHLORIDE 0.9% 230 ML IV SCH (11:51)
[2021-01-06] MEDS: SODIUM CHLORIDE 0.9% 10ML FLUSH IV SCH (13:54)
--- NOTE | 2021-01-06 15:38 | Hospitalist Progress Note ---
Date of Service January 06, 2021 Assessment & Plan (1) Pneumonia due to COVID-19 virus: Plan: Pneumonia 2/2 COVID-19 Breakthrough case, patient fully vaccinated prior Illness began approximately 12/28 Rales improved on exam today Complete 5 days azithromycin (last 01/07) Complete 10 days Decadron (done 01/12) 5 days of remdesivir complete 01/07 Patient clinically improving, stable appearing. Two-step pending, if well likely safe for discharge after completing 5 days of remdesivir PT/OT pending Continue Covid prophylaxis DVT Lovenox Titrate oxygen to greater than 90% Continue flutter valve, incentive spirometry (2) Acute respiratory failure with hypoxia: Plan: Due to Covid pneumonia No evidence of superimposed bacterial infection No evidence of superimposed congestive heart failure Treatment as noted under Covid (3) CAD (coronary artery disease): Plan: no ischemic symptoms at this time cont asa, statin, plavix, imdur, metoprolol (4) Hypertension: Plan: controlled cont current meds except cont to hold TYLER and chlorthalidone due to recent SMITHA and BPs have been normal without them repeat BMP am (5) Hypercholesterolemia: Plan: statin (6) Acute kidney injury: Plan: Baseline creatinine approximately 1.21.1 Creatinine elevated on admission Creatinine downtrending today BMP daily (7) Chronic kidney disease, stage 3a: Plan: baseline CrCl upper 40s and 50s see #6 above repeat BMP am (8) Acquired hypothyroidism: Plan: TSH 06/2020 wnl cont synthroid (9) DVT prophylaxis: Plan: lovenox 40mg BID Admission and Anticipated Discharge Date Admission Date: January 03, 2021 Idania Carrasquillo is seen at the bedside, she is putting together a puzzle while wearing her oxygen in no acute distress. She reports that she is comfortable breathing on oxygen at rest, does not have home oxygen requirement. No fever, chills, sweats overnight. No diarrhea/constipation. Overall feels slightly fatigued, but greatly improved from prior. No additional questions or concerns at time of bedside assessment. Review of Systems Review of Systems: Constitutional: See HPI Eyes: Denies vision change ENT: Denies ear pain, sore throat, sinus pain Cardiovascular: Denies Chest pain, chest pressure, palpitations, extremity swelling Respiratory: See HPI Gastrointestinal: Denies abdominal pain, nausea, vomiting, constipation, diarrhea Genitourinary: Denies dysuria, urinary frequency Musculoskeletal: Denies acute focal weakness, muscle aches/pain, joint aches/pain Integumentary:Denies acute rash, lesions, bruising Neurological: Denies headache, numbness, tingling, focal weakness Physical Exam Physical Exam: General: A&Ox3. NAD. Cooperative. HEENT: Atraumatic, normocephalic. Pulm: Diminished, slight bibasilar crackles which clear with deep inspiration. Otherwise CTAB A&P. -wheezes, -rales, -rhonchi. Symmetrical chest rise. No increase work of breathing. No respiratory distress. Cardiac: RRR, -mrg. Radial pulses intact and symmetrical. Abdominal: Nontender, nondistended, soft. BS present. Results & Data Results & Data ([facility]) Vital Signs (Past 12 Hours) Vital Signs Temp Pulse Pulse Resp BP Pulse Ox Pulse Ox 01/06/21 15:21 36.6 C 80 18 117/70 92 01/06/21 11:42 36.5 C 56 L 16 115/72 94 01/06/21 11:22 90 01/06/21 08:00 36.6 C 60 18 125/77 92 01/06/21 07:00 44 L Pulse Ox Pulse Ox 01/06/21 15:21 01/06/21 11:42 01/06/21 11:22 94 86 L 01/06/21 08:00 01/06/21 07:00 PG Care Time/CCT Total # of Minutes Spent Total Time Spent with Patient: Total time spent is greater than 50% in coordination of care (as documented) at patient's floor/unit and/or counseling patient: Coding Level of Care Code 42375 Subseq Hosp Care Lvl 2 Diagnoses Pneumonia due to COVID-19 virus U07.1; J12.82 Acute respiratory failure with hypoxia J96.01 CAD (coronary artery disease) I25.10 Hypertension I10 Hypercholesterolemia E78.00 Acute kidney injury N17.9 Chronic kidney disease, stage 3a N18.31 Acquired hypothyroidism E03.9 DVT prophylaxis Z29.9
[2021-01-06] MEDS: ASPIRIN 81 MG ECTAB PO SCH (20:19)
[2021-01-06] MEDS: ATORVASTATIN 40 MG TAB PO SCH (20:20)
[2021-01-06] MEDS: MELATONIN 3 MG TAB PO SCH (21:59)
[2021-01-07] MEDS: LEVOTHYROXINE SODIUM 50 MCG TABLET PO SCH (05:31)
[2021-01-07] MEDS: dexAMETHasone 6 MG in SYRINGE 0 ML IV SCH (08:35)
[2021-01-07] MEDS: OXYBUTYNIN CHLORIDE XL 5 MG TABCR PO SCH (08:35)
[2021-01-07] MEDS: ENOXAPARIN INJ 40 MG/0.4 ML SYR SQ SCH (08:35)
[2021-01-07] MEDS: ZINC SULFATE 220 MG CAPSULE PO SCH (08:36)
[2021-01-07] MEDS: CLOPIDOGREL BISULFATE 75 MG TAB PO SCH (08:36)
[2021-01-07] MEDS: AZITHROMYCIN 250 MG TAB PO SCH (08:36)
[2021-01-07] MEDS: BENZONATATE 100 MG CAPSULE PO SCH (08:37)
[2021-01-07] MEDS: guaiFENesin 600 MG TABCR PO SCH (08:37)
[2021-01-07] MEDS: CHOLECALCIFEROL 1,000 UNITS 25 MCG TAB PO SCH (08:37)
[2021-01-07] MEDS: ISOSORBIDE MONO EXTENDED REL 60 MG TABCR PO SCH (08:37)
[2021-01-07] MEDS: guaiFENesin/DEXTROM SYRUP 200MG/20MG 10ML UDC PO PRN (08:42)
[2021-01-07 10:18] LABS: Basophils # (auto) 0.01 K/uL (0-0.2); Basophils % (auto) 0.2 %; Hemoglobin 12.3 g/dL (12.0-16.0); Immature Granulocytes # (auto) 0.16 K/uL (0.00-0.02); Immature Granulocytes % (auto) 2.7 %; Lymphocytes # (auto) 0.68 K/uL (1.2-3.4); Lymphocytes % (auto) 11.4 %; Mean Corpuscular Hemoglobin 31.4 pg (25-34); Mean Corpuscular Hgb Conc 34.2 g/dL (32-36); Mean Corpuscular Volume 91.8 fL (80-100); Mean Platelet Volume 10.7 fL (7.4-10.4); Monocytes # (auto) 0.45 K/uL (0.11-0.59); Monocytes % (auto) 7.6 %; Neutrophils # (auto) 4.65 K/uL (1.4-6.5); Neutrophils % (auto) 78.1 %; Nucleated RBC # (auto) 0.05 K/uL (0-0); Nucleated RBC % (auto) 0.8 %; Platelet Count 275 K/uL (130-400); RDW Coefficient of Variation 12.9 % (11.5-14.5); RDW Standard Deviation 43.6 fL (36.4-46.3); Red Blood Count 3.92 M/uL (4.2-5.4); White Blood Count 5.95 K/uL (4.8-10.8)
[2021-01-07 10:38] LABS: Potassium 3.8 mmol/L (3.5-5.1)
[2021-01-07 10:39] LABS: Albumin Level 3.3 gm/dl (3.4-5.0); BUN Creatinine Ratio 29.9 (10-20); Calcium 9.4 mg/dl (8.5-10.1); Creatinine Clr Calc Pharmacy 47.1 ml/min; Est GFR (African American) 47.9 ml/min; Est GFR (Non-African American) 41.3 ml/min
[2021-01-07 10:42] LABS: Albumin Globulin Ratio 0.7 (0.9-2); Bilirubin,Total 0.5 mg/dl (0.2-1); Globulin 4.5 gm/dl (2.5-4.0); Total Protein 7.8 gm/dl (6.4-8.2)
[2021-01-07] MEDS: METOPROLOL TARTRATE 25 MG TAB PO SCH (11:34)
[2021-01-07] MEDS: REMDESIVIR 100 MG in SODIUM CHLORIDE 0.9% 230 ML IV SCH (11:34)
--- NOTE | 2021-01-07 15:13 | Discharge Summary ---
Date of Service January 07, 2021 Admission HPI Per Admitting Provider Neida Erazo is a 65-year-old female with a past medical history of CAD s/p 3 stents most recently in 2016, HTN, and hypercholesterolemia who is presenting with cough and chest pain. She developed symptoms on Wednesday and tried 3 days of vics to help with the cough. She then developed a chest pain in her central chest that is worse with cough and she relates to her cough but also felt similar to prior to her stent being placed. The pain is worse with activity and does have some shortness of breath with it. She was driving to work at [employer] and has been getting progressively more tired which lead her to come to get evaluated in the ER. She has lost her taste and smell yesterday and had diarrhea today. She has not been able to keep much fluids down as she has felt stomach upset. She notes that she had some leg cramps in her left leg. She is not currently short of breath, denies weakness, fevers, vomiting, rash. Vaccinated against COVID-19 with [employer] in June. Admission Exam Per Admitting Provider Constitutional: well developed and well nourished; no acute distress Eyes: PERRL, conjunctivae normal, anicteric sclerae ENMT: external ear and nose normal, oropharynx normal Neck: normal visual inspection Respiratory: normal respiratory effort, lungs clear to auscultation normal respiratory effort; no respiratory distress and no labored breathing Cardiovascular: RRR, no murmur, no edema Extremities: no pedal edema Gastrointestinal (Abdomen): normal bowel sounds, soft, nontender, no h epatosplenomegaly Skin: no rashes, warm and dry Neurologic: no focal motor deficits Psychiatric: A+Ox3, euthymic affect Principal Diagnosis COVID-19 positive test (U07.1, COVID-19) with Acute Pneumonia (J12.89, Other viral pneumonia) Discharge Exam General: A&Ox3. NAD. Cooperative. HEENT: Atraumatic, normocephalic. Dual acuity and hearing grossly intact. Pupils equal and reactive to light. Pulm: Diminished, slight bibasilar crackles which cleared with deep inspiration. -wheezes, -rales, -rhonchi. Symmetrical chest rise. No increase work of breathing. No respiratory distress. Cardiac: RRR, -mrg. Radial pulses intact and symmetrical. Abdominal: Nontender, nondistended, soft. BS present. Extremities: Moving all extremities equally, warm, dry. Bottle Blowing Machine Tender strength and hip flexion, ankle dorsiflexion/plantarflexion grossly intact and symmetrical. Discharge Data Allergies Allergy/AdvReac Type Severity Reaction Status Date / Time No Known Drug Allergies Allergy NKDA Verified 01/03/21 02:08 Consultations 01/03/21 02:11 ED Decision to Admit Stat Ordered Studies 01/03/21 04:52 US venous doppler LE BI Routine Hospital Course (1) Pneumonia due to COVID-19 virus: Neida is a 65-year-old female with a medical history of CAD, hypercholesterolemia, hypertension, CKD, and hypothyroidism who was admitted as a breakthrough case of COVID-19 pneumonia. She clinically improved over 5-day admission was discharged in stable condition with a residual oxygen requirement. Do as outpatient: 1. Reassess oxygen needs and clinical progression 2. Repeat BMP to ensure stability of creatinine Pneumonia 2/ COVID-19 Breakthrough case, patient fully vaccinated prior Illness began approximately 12/28 Rales improved on exam today Completed 5 days azithromycin (last 01/07) Complete 10 days Decadron (done 01/12) 5 days of remdesivir completed 01/07 Patient clinically improving, stable appearing. Patient completed two-step which recommended home oxygen 2-4 L, patient discharged with home oxygen con centrator and PCP follow-up. Recommended SPO2 goal greater than 90%. PT/OT recommended dc home (2) Acute respiratory failure with hypoxia: Due to Covid pneumonia No evidence of superimposed bacterial infection No evidence of superimposed congestive heart failure Treatment as noted under Covid (3) CAD (coronary artery disease): no ischemic symptoms during admission Continued asa, statin, plavix, imdur, metoprolol (4) Hypertension: controlled To need current meds except cont to hold TYLER and chlorthalidone due to recent SMITHA, meds resumed at discharge (5) Hypercholesterolemia: statin (6) Acute kidney injury: Baseline creatinine approximately 1.3 Creatinine elevated on admission, down trended and stabilized. Creatinine at discharge 1.36 Recommend repeat BMP as outpatient to ensure stability (7) Chronic kidney disease, stage 3a: baseline CrCl upper 40s and 50s see #6 above (8) Acquired hypothyroidism: TSH 06/2020 wnl cont synthroid (9) DVT prophylaxis: lovenox 40mg BID during admission, no signs of DVT during admission Total Time Total Time Spent Total Time Spent (In Minutes): Total time spent preparing discharge approximat hilda 35 minutes including direct patient care, coordination of care, review of labs and images, and documentation. Discharge Plan Discharge Items Patient Disposition: Home - Self-Care Reason For Visit: COVID-19 PNEUMONIA Discharge Diagnosis: COVID19 PNA Activity: Per Instructions section Non-emergency contact: Primary Care Provider Call non-emergency contact if: you have any medication questions, your symptoms worsen, your pain is not controlled, your pain is worsening, your pain is concerning for you and you have a fever Follow-up/Referrals: Za Ramos MD [Primary Care Provider] - 01/10/21 11:20 am (VIRTUAL VISIT DUE TO +COVID) Diet: Heart Healthy Addtl Attending Provider Instructions: You were seen in the hospital for Covid pneumonia. You gradually recovered well, and were stable at time of discharge. You were found to have a low-grade oxygen requirement, some patients require oxygen for up to several weeks as they recovered from COVID. You are being discharged home with oxygen as needed. You are being discharged to complete a course of steroids as noted below. You have been prescribed a steroid medication called dexamethasone. Please com plete a 10-day course of dexamethasone 6 mg daily by taking dexamethasone 6 mg once daily by mouth until 01/12/2021. You completed 5 days of an antibiotic treatment with azithromycin during admission. You completed 5 days of an anti-Covid medication called remdesivir during admission. These medications were not prescribed/continued after discharge. You were found to have a residual oxygen requirement at time of discharge. Please use 2-4 L of oxygen as needed to keep your oxygen levels (SpO2) greater than 90%. Please note that 100% is not normal, and the goal for oxygenation by pulse ox should be greater than 90%, not 100%. If you experience any worsening shortness of breath, difficulty breathing, oxygen levels below 90% on 4 L of oxygen or requiring more than 4 L of oxygen please contact your primary care provider or return to the emergency department for reevaluation and additional care. A virtual follow-up appointment will be scheduled for you with your primary care on 01/10/2021 at 11:20 AM please keep this appointment, if you need to change his appointment please call her office directly at [phone]. If you develop any new or worsening symptoms including fever, chills, sweats, chest pain, chest pressure, difficulty breathing, uncontrolled nausea/vomiting, rash, wheezing, passing out or nearly passing out, bleeding, black/bloody bowel movements, or other new or concerning symptoms please call your primary care physician at [phone], or call 911 for re-evaluation in the emergency department if you are very concerned. Pending Studies at Discharge: No Stand-Alone Forms: My [facility] [employer], Smoking Cessation Medications and DC Order Prescriptions: New dexamethasone 6 mg tablet 6 mg PO DAILY Qty: 5 RF: 0 Continued nitroglycerin 0.4 mg tablet, sublingual 0.4 mg sublingual UD PRN (Reason: Angina) Qty: 20 RF: 2 metoprolol tartrate 25 mg tablet 25 mg PO BID Qty: 180 RF: 3 oxybutynin chloride 10 mg tablet extended release 24hr 10 mg PO QAM Qty: 90 RF: 3 atorvastatin 80 mg tablet 80 mg PO HS Qty: 90 RF: 3 clopidogrel 75 mg tablet 75 mg PO QAM Qty: 90 RF: 3 chlorthalidone 25 mg tablet 25 mg PO DAILY Qty: 30 RF: 11 isosorbide mononitrate 60 mg tablet extended release 24 hr 60 mg PO QAM Qty: 90 RF: 3 lisinopril 40 mg tablet 40 mg PO QAM Qty: 90 RF: 3 levothyroxine 50 mcg capsule 50 mcg PO DAILY Qty: 30 RF: 3 furosemide 20 mg tablet 20 mg PO QAM PRN (Reason: edema) Qty: 30 RF: 3 Pro [place] Joint Extra 2,000 mg PO DAILY RF: 0 aspirin 81 mg Tablet,Delayed Release (Dr/Ec) 81 mg PO HS RF: 0 cholecalciferol (vitamin D3) [Vitamin D3] 5,000 unit Tablet 5,000 unit PO QPM RF: 0 Discharge Orders: Discharge Order (Routine); Ordered 01/07/21 Ordered By: Kevyn Calvert Admission Data Admit Date/Time: 01/03/21 04:36 Attending Provider: Kevyn Calvert Admit Provider: Kuldip Becerra Primary Care Provider: Za Ramos V. Other Providers: Smith Marroquin Other Interventions: Discharge Summary Assessment (RN) Last Done: 01/07/21 12:56 Coding Level of Care Code D/C DAY MANAGEMENT >30 MINS Diagnoses Pneumonia due to COVID-19 virus U07.1; J12.82 Acute respiratory failure with hypoxia J96.01 CAD (coronary artery disease) I25.10 Hypertension I10 Hypercholesterolemia E78.00 Acute kidney injury N17.9 Chronic kidney disease, stage 3a N18.31 Acquired hypothyroidism E03.9 DVT prophylaxis Z29.9
== END 2021-01-07 16:04 | disposition home or self-care (01) | DRG 177 ==
LOC: ED 19:27 → SUATTDRO 01-03 04:36 → EDINP 01-03 04:36 → 2W 01-03 12:46

== ENCOUNTER 2021-10-08 07:47 | Observation (INO) ==
--- NOTE | 2021-09-10 10:14 | PAT Medication Instructions ---
Medication Instructions Date of Service September 10, 2021 Home Medications Medication Instructions Recorded nitroglycerin 0.4 mg sublingual 0.4 mg SUBLINGUAL UD PRN #20 tab 03/12/20 tablet furosemide 20 mg tablet 20 mg PO QAM PRN #30 tab 09/03/20 atorvastatin 80 mg tablet 80 mg PO HS #90 tab 09/10/20 albuterol sulfate 90 mcg/actuation 1 inh INHALATION QID PRN #8.5 g 01/22/21 aerosol inhaler metoprolol tartrate 25 mg tablet 25 mg PO BID #180 tab 01/22/21 lisinopril 40 mg tablet 40 mg PO QAM #90 tab 02/14/21 Portable Oxygen #2 ea 03/31/21 oxybutynin chloride 10 mg 10 mg PO QAM #90 tab 05/26/21 tablet,extended release 24 hr clopidogrel 75 mg tablet 75 mg PO QAM #90 tab 05/27/21 isosorbide mononitrate 60 mg 60 mg PO QAM #90 tab 08/20/21 tablet,extended release 24 hr aspirin 81 mg tablet,delayed release 81 mg PO HS cholecalciferol (vitamin D3) 125 mcg (5,000 unit) tablet (Vitamin D3) 5,000 unit PO QPM nitroglycerin 0.4 mg sublingual tablet 0.4 mg SUBLINGUAL UD PRN furosemide 20 mg tablet 20 mg PO QAM PRN atorvastatin 80 mg tablet 80 mg PO HS Pro [place] Joint Extra 2,000 mg PO DAILY albuterol sulfate 90 mcg/actuation aerosol inhaler 1 inh INHALATION QID PRN metoprolol tartrate 25 mg tablet 25 mg PO BID lisinopril 40 mg tablet 40 mg PO QAM oxybutynin chloride 10 mg tablet,extended release 24 hr 10 mg PO QAM clopidogrel 75 mg tablet 75 mg PO QAM isosorbide mononitrate 60 mg tablet,extended release 24 hr 60 mg PO QAM chlorthalidone 25 mg tablet 25 mg PO QAM levothyroxine 50 mcg tablet 50 mcg PO QAM Continue as directed nitroglycerin 0.4 mg sublingual tablet 0.4 mg SUBLINGUAL UD PRN (if needed) ASK your prescriber and surgeon clopidogrel 75 mg tablet 75 mg PO QAM (in order for spinal anesthesia, clopidogrel/plavix needs to be stopped 7 days before surgery. Please check if okay with doctor that prescribes this to you) i STOP taking 2 weeks before surgery (or as soon as possible if surgery is within 2 weeks) Pro [place] Joint Extra 2,000 mg PO DAILY DO NOT take the morning of surgery furosemide 20 mg tablet 20 mg PO QAM PRN lisinopril 40 mg tablet 40 mg PO QAM oxybutynin chloride 10 mg tablet,extended release 24 hr 10 mg PO QAM chlorthalidone 25 mg tablet 25 mg PO QAM Take morning of surgery With a small sip of water, OTHERWISE NOTHING TO EAT OR DRINK AFTER MIDNIGHT: albuterol sulfate 90 mcg/actuation aerosol inhaler 1 inh INHALATION QID PRN (use if needed; please bring rescue inhaler with you to hospital day of surgery if possible) metoprolol tartrate 25 mg tablet 25 mg PO BID isosorbide mononitrate 60 mg tablet,extended release 24 hr 60 mg PO QAM levothyroxine 50 mcg tablet 50 mcg PO QAM Take evening before surgery aspirin 81 mg tablet,delayed release 81 mg PO HS (continue as normal unless told otherwise by surgeon) cholecalciferol (vitamin D3) 125 mcg (5,000 unit) tablet (Vitamin D3) 5,000 unit PO QPM atorvastatin 80 mg tablet 80 mg PO HS albuterol sulfate 90 mcg/actuation aerosol inhaler 1 inh INHALATION QID PRN (if needed) metoprolol tartrate 25 mg tablet 25 mg PO BID Other Notes If you have any questions please call us at [phone] or [phone] or [phone] or [phone]
--- NOTE | 2021-09-11 08:57 | Anesthesiology Consultation ---
Date of Service September 11, 2021 Assessment & Plan (1) Encounter for pre-operative examination: - Case discussed with Dr. Duvall who advised cardiology clearance and consideration for stress testing prior to surgery given cardiology note 01/27/21. Cardiology provider aware. - elevated creatinine 1.7: PCP advised pt has upcoming appt 09/19 and plan to repeat labs. - pulm 08/15/21 [place]: "...previous diagnosis of Covid pneumonitis with fibrotic changes on CT scan and restrictive PFTs...sonogram demonstrated very borderline sleep disordered breathing...plan on repeating the patient's PFTs and CT scan in about 6 to 9 months and see her back after those studies have been completed...General hypoxemia: Secondary to restrictive lung disease and body habitus. Continue supplemental oxygen at night. Based on her sleep study, I do not think we need to proceed with CPAP currently. If the patient gains weight, CPAP may be in her future...Shortness of breath: Continue exercise program..." - cardio 01/27/21 [place]: "...complex PCI with VASQUEZ x2 to proximal to mid LAD 01/2016 [place] [facility] [place] VASQUEZ 2010...recently admitted to [facility] with COVID-19 pneumonia...persistent exertional chest pain and dyspnea since hospital discharge several weeks ago. On exam appears well perfused without signs of heart failure. Serial troponin negative and no acute ECG changes during admission. Plan to rule out PE with CTA of her chest. Will obtain BMP first given her renal dysfunction. If no evidence of PE plan to perform Lexiscan SPECT to rule out cardiac ischemia..." - COVID screening: Per assessment on 09/11/2021: Travel screen negative, no known COVID-19 positive contacts or current COVID-19 related symptoms in past 2 weeks. Pt vaccinated. Surgeon arranging preop COVID testing, scheduled 10/06/2021. Awaiting results. Chart Review Chart Review: Pending: Refer to Additional Notes / Consult section and Patient seen in Pre Admission Testing Teaching & Discussion Pre-Anesthesia Teaching/Discussion Notes: Instructed NPO after midnight before surgery, except medications with 15 cc of water. Medication instructions provided according to the PAT guidelines. History Surgery Operation Date: 10/08/21 07:15 Proposed Procedures p Left Total Knee Arthroplasty - Adrian Munoz MD Height/Weight Height: 5 ft 1.5 in Weight: 104 kg Allergies Allergy/AdvReac Type Severity Reaction Status Date / Time No Known Drug Allergies Allergy NKDA Verified 09/10/21 08:43 Medications Home Medications Medication Instructions Recorded Confirmed Last Taken aspirin 81 mg tablet,delayed 81 mg PO HS 08/04/18 09/10/21 08/13/18 18:00 release cholecalciferol (vitamin D3) 125 5,000 unit PO QPM 08/04/18 09/10/21 08/13/18 18:00 mcg (5,000 unit) tablet (Vitamin D3) nitroglycerin 0.4 mg sublingual 0.4 mg SUBLINGUAL UD PRN #20 tab 03/12/20 09/10/21 Unknown tablet furosemide 20 mg tablet 20 mg PO QAM PRN #30 tab 09/03/20 09/10/21 Unknown atorvastatin 80 mg tablet 80 mg PO HS #90 tab 09/10/20 09/10/21 Unknown Pro [place] Joint Extra 2,000 mg PO DAILY 12/31/20 09/10/21 Unknown albuterol sulfate 90 mcg/actuation 1 inh INHALATION QID PRN #8.5 g 01/22/21 09/10/21 Unknown aerosol inhaler metoprolol tartrate 25 mg tablet 25 mg PO BID #180 tab 01/22/21 09/10/21 Unknown lisinopril 40 mg tablet 40 mg PO QAM #90 tab 02/14/21 09/10/21 Unknown Portable Oxygen #2 ea 03/31/21 08/15/21 Unknown oxybutynin chloride 10 mg 10 mg PO QAM #90 tab 05/26/21 09/10/21 Unknown tablet,extended release 24 hr clopidogrel 75 mg tablet 75 mg PO QAM #90 tab 05/27/21 09/10/21 Unknown isosorbide mononitrate 60 mg 60 mg PO QAM #90 tab 08/20/21 09/10/21 Unknown tablet,extended release 24 hr chlorthalidone 25 mg tablet 25 mg PO QAM 09/10/21 09/10/21 Unknown levothyroxine 50 mcg tablet 50 mcg PO QAM 09/10/21 09/10/21 Unknown Past Medical History Medical History (Updated 09/11/21 @ 09:01 by Erika Bhagat PA-C) CAD (coronary artery disease) s/p 2 VASQUEZ to LAD 01/2016, Cx VASQUEZ 2010, follows with [place] [facility] Chronic kidney disease, stage 3a History of COVID-19 12/2020 covid pneumonia- hospitalized - O2 sat has been holding 95 and using O2@ at night per pt. follows with pulmonary [place] Hyperlipidemia Hypertension controlled, stable per pt Hypothyroidism On anticoagulant therapy plavix daily Sleep apnea on supplemental O2 HS Swelling of lower extremity bilat, states has been stable over the past yr Patient denies h/o stroke, seizures, heart failure, DM, blood clots or blood transfusions. Exercise / Class Metabolic Activity II 4-5 Yardwork/Stairs/Walk up hill (mild SOB at top of stairs ongoing since COVID illness, denies CP) Past Family History Family History Mother Family history of reaction to anesthesia nausea/vomiting Ovarian cancer Grandmother (Maternal) Family history of diabetes mellitus Father Myocardial infarction Brother Melanoma Other Cancer Diabetes Heart disease Denies family history of Tuberculosis Prostate cancer Breast cancer Emphysema of lung Colorectal cancer Lung disease Asthma Past Surgical History Surgical History History of appendectomy History of bilateral tubal ligation History of cardiac cath x3--last 2015, follow with [place] [facility] History of carpal tunnel release of both wrists History of colonoscopy History of dilatation and curettage History of heart artery stent x3-- follow with [facility] History of root canal procedure History of tooth extraction all upper teeth removed/some lower History of total abdominal hysterectomy and bilateral salpingo-oophorectomy History of wisdom tooth extraction Past Anesthesia History No Hx of Anesthesia Complications and Other (mother slow to wake) History of PONV No Hx of PONV and No Hx of Motion Sickness Social History Smoking Status: Never smoker Do You Dip or Chew Tobacco: No Hx Alcohol Use: No Hx Substance Use: No substance use type: does not use Review of Systems Occasional chronic reflux if eats spicy foods. Patient denies chest pain, fever, chills, cough, wheezing, or palpitations. Physical Exam Vital Signs Vitals BP 124/74 P 51 TEMP 98.4 SP02 97% on RA RESP 16 Physical Full cervical extension range of motion without pain TMD 3.5 finger breaths Mallampati Score 3 Dentition: upper and lower dentures Lungs: normal respiratory effort. Clear throughout to auscultation, no adventitious breath sounds Cardiac: regular rate and rhythm, no murmurs noted Carotid arteries: negative bruit bilat Lab Results Anesthesia Preop Results Results Anesthesia Widget: WBC 4.65 K/uL (4.8-10.8) L 09/11/21 Hgb 11.6 g/dL (12.0-16.0) L 09/11/21 Hct 35.8 % (37-47) L 09/11/21 Plt 160 K/uL (130-400) 09/11/21 Na 138 mmol/L (136-145) 09/11/21 K 4.5 mmol/L (3.5-5.1) 09/11/21 Cl 105 mmol/L (98-107) 09/11/21 CO2 27 mmol/L (21-32) 09/11/21 BUN 36 mg/dl (6-23) H 09/11/21 Creat 1.73 mg/dl (0.6-1.2) H 09/11/21 Glucose Level 97 mg/dl (70-99(Fasting)) 09/11/21 PT 10.4 Seconds (9.0-12.0) 09/11/21 PTT 25.6 Seconds (21.0-31.0) 09/11/21 INR 1.0 (0.9-1.1) 09/11/21 HA1c 5.7 % (4.5-5.6) H 09/11/21 Urine Color Yellow 09/11/21 Urine Appearance Clear (Clear) 09/11/21 Urine pH 5.5 (4.5-7.5) 09/11/21 Urine Specific [place] 1.020 (1.000-1.030) 09/11/21 Urine Protein Negative (Negative) 09/11/21 Urine Glucose (UA) Negative (Negative) 09/11/21 Urine Ketones Negative (Negative) 09/11/21 Urine Blood Negative (Negative) 09/11/21 Urine Nitrite Negative (Negative) 09/11/21 Urine Bilirubin Negative (Negative) 09/11/21 Urine Urobilinogen Negative (Negative) 09/11/21 Urine Leukocyte Esterase Negative (Negative) 09/11/21 Blood Type A Positive 09/11/21 Antibody Screen NEGATIVE 09/11/21 Testing Electrocardiogram Date: 01/04/21 Sinus bradycardia with sinus arrhythmia, rate 54 bpm Low voltage QRS Echocardiogram Date: 02/06/16 EF 65-69% No LV segmental wall motion abnormalities No significant valvular dysfunction is detected Mild cLVH Basal septum is thickened and angulated consistent with sigmoid septum Stress Test Date: 04/25/18 Pharmacologic MPHR 57% No induced ischemia EF 67% without regional wall motion abnormalities Non-diagnostic d/t inability to reach target HR Cardiac Catheterization Date: 02/06/16 Prior [place] and previous coronary intervention 02/10/2011 Significant 1 vessel disease PCI proximal LAD and mid LAD successful Left main: no evidence of disease LAD: 70% lesion proximal LAD stented with 2 VASQUEZ Cx: mildly diseased No comment on RCA Other Testing Chest CT 05/12/21 Thoracic aorta: There is mild atherosclerotic calcification of the thoracic aorta, which is normal in caliber and demonstrates bovine variant arch anatomy. Heart: The heart is top normal in size and without pericardial effusion. The coronary arteries are densely calcified. Lungs and pleural spaces: There are persistent subpleural airspace opacities seen throughout both lungs with associated architectural distortion. This has partially cleared as compared to 01/27/2021. There is no lobar consolidation or pleural effusion. Scattered calcified granulomas are observed. The trachea and central airways are clear. There is a 3 mm pleural-based nodule in the right upper lobe on image #58. 6 mm and 5 mm pleural-based nodules in the right middle lobe are seen on images #116 and #127. A 4 mm pleural-based nodular density in the left lower lobe along the major fissure is seen on image #110. A 3 mm right lower lobe nodule is seen on image #145. Naina: Not well assessed without IV contrast Upper abdomen: There is a tiny hiatal hernia. The spleen is mildly enlarged measuring 13.9 cm in length. Skeletal structures: The skeletal structures are osteopenic. Degenerative change is noted in the thoracic spine. No lytic or blastic bony lesions are seen. IMPRESSION: 1. Scattered pulmonary and pleural-based nodules measure up to 6 mm. These are pathologically indeterminant and can be followed as per the Fleischner criteria. 2. There are residual subpleural airspace opacities with associated architectural distortion. This has partially cleared as compared to 01/27/2021. This could represent a resolving pneumonitis versus postinfectious parenchymal scarring. This should also be reassessed at follow-up. 3. No pleural effusion is identified. 4. Additional findings as above. [place] pulm monitoring
--- NOTE | 2021-10-07 19:36 | History & Physical Report ---
Date of Service October 07, 2021 Assessment & Plan (1) Primary osteoarthritis of left knee: Plan: Treatment options discussed with the patient. Patient has failed conservative measures and would like to proceed with knee replacement. Risks, benefits and alternatives to surgery including but not limited to infection, DVT, pain, stiffness, need for revision surgery, damage to blood vessels, damage to nerves, PE, , were discussed with the patient and they wish to proceed. Plan on left total knee arthroplasty at [facility] on 10/08/[address] Munoz. Plan on aspirin 81mg BID for 1 mo post op for DVT prophylaxis, home health PT. All questions answered. F/u post op. History of Present Illness Chief Complaint: Left knee pain Primary Care Provider: Za Ramos MD 66 yo female with PMHx significant for CAD, HTN, hypothyroid, GERD, CKD who presents with ongoing left knee pain. Pain is interfering with her daily activities. She has failed conservative measures and would like to proceed with replacement. Patient denies headaches, sweats, fevers, chills, double vision, blurred vision, cough, sore throat, dysphagia, chest pain, sob, wheezing, n/v/d/c, numbness, tingling, fatigue, urinary symptoms, mood disorders. ROS positive for left knee pain and stiffness. Allergies Allergy/AdvReac Type Severity Reaction Status Date / Time No Known Drug Allergies Allergy NKDA Verified 10/06/21 12:43 Home Medications Medication Instructions Recorded Confirmed Type aspirin 81 mg tablet,delayed 81 mg PO HS 08/04/18 10/06/21 History release cholecalciferol (vitamin D3) 125 5,000 unit PO QPM 08/04/18 10/06/21 History mcg (5,000 unit) tablet (Vitamin D3) nitroglycerin 0.4 mg sublingual 0.4 mg SUBLINGUAL UD PRN #20 tab 03/12/20 10/06/21 Rx tablet furosemide 20 mg tablet 20 mg PO QAM PRN #30 tab 09/03/20 10/06/21 Rx Pro [place] Joint Extra 2,000 mg PO DAILY 12/31/20 10/06/21 History albuterol sulfate 90 mcg/actuation 1 inh INHALATION QID PRN #8.5 g 01/22/21 10/06/21 Rx aerosol inhaler metoprolol tartrate 25 mg tablet 25 mg PO BID #180 tab 01/22/21 10/06/21 Rx lisinopril 40 mg tablet 40 mg PO QAM #90 tab 02/14/21 10/06/21 Rx Portable Oxygen #2 ea 03/31/21 10/06/21 Rx oxybutynin chloride 10 mg 10 mg PO QAM #90 tab 05/26/21 10/06/21 Rx tablet,extended release 24 hr isosorbide mononitrate 60 mg 60 mg PO QAM #90 tab 08/20/21 10/06/21 Rx tablet,extended release 24 hr chlorthalidone 25 mg tablet 25 mg PO QAM 09/10/21 10/06/21 History atorvastatin 80 mg tablet 80 mg PO HS #90 tab 09/15/21 10/06/21 Rx clopidogrel 75 mg tablet 75 mg PO QAM #90 tab 09/19/21 10/06/21 Rx levothyroxine 50 mcg tablet 50 mcg PO QAM #90 tab 10/06/21 10/06/21 Rx Past Med/Surg History Medical History (Updated 10/07/21 @ 19:33 by Bran Veliz PA-C) CAD (coronary artery disease) s/p 2 VASQUEZ to LAD 01/2016, Cx VASQUEZ 2010, follows with [facility] Chronic kidney disease, stage 3a History of COVID-19 12/2020 covid pneumonia- hospitalized - O2 sat has been holding 95 and using O2@ at night per pt. follows with pulmonary [place] Hyperlipidemia Hypertension controlled, stable per pt Hypothyroidism Obesity, morbid, BMI 40.0-49.9 On anticoagulant therapy plavix daily Sleep apnea on supplemental O2 HS Swelling of lower extremity bilat, states has been stable over the past yr Surgical History History of appendectomy History of bilateral tubal ligation History of cardiac cath x3--last 2015, follow with [facility] History of carpal tunnel release of both wrists History of colonoscopy History of dilatation and curettage History of heart artery stent x3-- follow with [facility] History of root canal procedure History of tooth extraction all upper teeth removed/some lower History of total abdominal hysterectomy and bilateral salpingo-oophorectomy History of wisdom tooth extraction Family History Mother Family history of reaction to anesthesia nausea/vomiting Ovarian cancer Grandmother (Maternal) Family history of diabetes mellitus Father Myocardial infarction Brother Melanoma Other Cancer Diabetes Heart disease Denies family history of Tuberculosis Prostate cancer Breast cancer Emphysema of lung Colorectal cancer Lung disease Asthma Social History Smoking Status: Never smoker packs per day: 1.5; Years Smoked: 9; Number of Years Since Quit: 32; Second Hand Exposure: No; Hx Alcohol Use: No Hx Substance Use: No Preferred Language: Guyanese Communication Ability: Effective Visual Impairment: No Limitations Hearing Ability: Normal Fish Bin Tender Required: No Beliefs That Will Affect Care: None marital status: Current Living Situation: Spouse current occupational status: unemployed How many Children do You have: 0 Feels Safe at Home: Yes Dental Care, Regularly: Yes Physical Activity Frequency: Does not Exercise Seatbelt Use: always Sunscreen Use: Yes Assistive Devices: Denture - Upper, Denture - Lower and Glasses Review of Systems All systems reviewed & are unremarkable except as noted in HPI & below Physical Exam Constitutional: well developed and well nourished; no acute distress Eyes: PERRL, conjunctivae normal, anicteric sclerae ENMT: external ear and nose normal, oropharynx normal Neck: trachea midline, no thyromegaly Respiratory: normal respiratory effort, lungs clear to auscultation Cardiovascular: RRR, no murmur, no edema Musculoskeletal: Left knee: Varus alignment mild effusion. Tenderness medial joint line. Stable to valgus and varus stress. ROM 0-115 degrees. Skin: no rashes, warm and dry Neurologic: patellar DTR's 2+ bilat, sensation intact Psychiatric: A+Ox3, euthymic affect Results & Data ([facility]) Diagnostic Findings Left knee radiographs demonstrate severe endstage osteoarthritis with bone on bone medial compartment with bone loss.
[~2021-10-08 07:47] MED LIST changes: +ACETAMINOPHEN 500 MG TAB PO SCH; -AMLO5TAB3 PO; -ASPI-319 PO; -ATOR-26 PO; +BUPIVACAINE 0.5 % 5 MG/1 ML PF 10ML VIAL ONE; +CeleBREX 200 MG CAP PO SCH; +EPINEPHrine INJ 1 MG/ML AMP ONE; +FAMOTIDINE 20 MG TAB PO SCH; -FURO-85 PO; +GABAPENTIN 600 MG DOSE PO SCH; -LISI40TA PO; +LR 15ML/HR IV SCH; -METO25TA56 PO; +METOCLOPRAMIDE HCL 10 MG TABLET PO SCH; -NITR0.4D6 SL; -OMEG10007 PO; -PLV75 PO; +ROPIVACAINE 0.5% 5 MG/ML 30 ML VIAL ONE; +ROPIVACAINE 0.5% HCL/PF 150 MG, BUPIVACAINE 0.75% MPF 20 ML, EPINEPHrine 30MG/30ML (OR ... INSTIL SCH; +TRANEXAMIC ACID 1,000 MG **IV Intra-op IV SCH; +TRANEXAMIC ACID 1,000 MG **IV Pre-op IV SCH; -black cohash PO; +ceFAZolin 2000MG 2,000 MG/15 ML SYR IV SCH; +dexAMETHasone 4 MG TAB PO SCH
[2021-10-08] MEDS ORDERED: PROPOFOL IV EMULSION 10 MG/ML 20 ML VIAL IV ONE ×3 (09:29→12:41)
[2021-10-08] MEDS ORDERED: MIDAZOLAM HCL 1 MG/ML 2ML VIAL ONE (09:29)
[2021-10-08] MEDS ORDERED: ePHEDrine sulfate 50 MG/ML AMP IV PRN (09:42)
[2021-10-08] MEDS ORDERED: fentaNYL citrate 100 MCG/2 ML VIAL IV PRN (09:42)
[2021-10-08] MEDS ORDERED: PHENYLEPHRINE 100MCG/ML 5ML SYR IV PRN (09:42)
[2021-10-08] MEDS ORDERED: ONDANSETRON INJ 2 MG/ML 2 ML VIAL IV PRN ×2 (09:42→14:18)
[2021-10-08] MEDS ORDERED: HYDROmorphone INJ 1 MG/ML SYRINGE IV PRN (09:42)
[2021-10-08] MEDS ORDERED: LABETALOL HCL IV 5 MG/ML 20ML IV PRN (09:42)
[2021-10-08] MEDS ORDERED: MEPERIDINE HCL 25 MG/ML CARP/VIAL IV PRN (09:42)
[2021-10-08] MEDS ORDERED: ATROPINE SULFATE 0.1 MG/ML 10ML SYR IV PRN (09:42)
--- NOTE | 2021-10-08 09:43 | Anesthesiology Consultation ---
Date of Service October 08, 2021 History Surgery Operation Date: 10/08/21 09:45 Proposed Procedures p Left Total Knee Arthroplasty - Adrian Munoz MD Height/Weight Height: 5 ft 1.5 in Weight: 103.9 kg Allergies Allergy/AdvReac Type Severity Reaction Status Date / Time No Known Drug Allergies Allergy NKDA Verified 10/08/21 08:08 Medications Home Medications Medication Instructions Recorded Confirmed Last Taken aspirin 81 mg tablet,delayed 81 mg PO HS 08/04/18 10/08/21 10/07/21 21:00 release cholecalciferol (vitamin D3) 125 5,000 unit PO QPM 08/04/18 10/08/21 10/07/21 07:00 mcg (5,000 unit) tablet (Vitamin D3) nitroglycerin 0.4 mg sublingual 0.4 mg SUBLINGUAL UD PRN #20 tab 03/12/20 10/06/21 Unknown tablet furosemide 20 mg tablet 20 mg PO QAM PRN #30 tab 09/03/20 10/08/21 Unknown Pro [place] Joint Extra 2,000 mg PO DAILY 12/31/20 10/08/21 09/24/21 albuterol sulfate 90 mcg/actuation 1 inh INHALATION QID PRN #8.5 g 01/22/21 10/06/21 Unknown aerosol inhaler metoprolol tartrate 25 mg tablet 25 mg PO BID #180 tab 01/22/21 10/08/21 10/08/21 06:30 lisinopril 40 mg tablet 40 mg PO QAM #90 tab 02/14/21 10/08/21 10/07/21 07:00 Portable Oxygen #2 ea 03/31/21 10/06/21 Unknown oxybutynin chloride 10 mg 10 mg PO QAM #90 tab 05/26/21 10/08/21 10/07/21 07:00 tablet,extended release 24 hr isosorbide mononitrate 60 mg 60 mg PO QAM #90 tab 08/20/21 10/08/21 10/07/21 07:00 tablet,extended release 24 hr chlorthalidone 25 mg tablet 25 mg PO QAM 09/10/21 10/08/21 10/07/21 07:00 atorvastatin 80 mg tablet 80 mg PO HS #90 tab 09/15/21 10/06/21 10/07/21 21:00 clopidogrel 75 mg tablet 75 mg PO QAM #90 tab 09/19/21 10/06/21 09/30/21 levothyroxine 50 mcg tablet 50 mcg PO QAM #90 tab 10/06/21 10/06/21 10/08/21 06:30 Active Medications Generic Name Dose Route Start Last Admin Trade Name [place]ton PRN Reason Stop Dose Admin Acetaminophen 1,000 mg 10/08/21 06:00 10/08/21 08:24 Acetaminophen 500 Mg Tab PO 10/08/21 18:00 1,000 mg PREOP YAHAIRA Administration Celecoxib 200 mg 10/08/21 06:00 10/08/21 08:25 Celebrex 200 Mg Cap PO 10/08/21 18:00 200 mg PREOP YAHAIRA Administration Dexamethasone 8 mg 10/08/21 06:00 10/08/21 08:25 Dexamethasone 4 Mg Tab PO 10/08/21 18:00 8 mg PREOP YAHAIRA Administration Famotidine 20 mg 10/08/21 06:00 10/08/21 08:25 Famotidine 20 Mg Tab PO 10/08/21 18:00 20 mg PREOP YAHAIRA Administration Gabapentin 600 mg 10/08/21 06:00 10/08/21 08:25 Gabapentin 600 Mg Dose PO 10/08/21 18:00 600 mg PREOP YAHAIRA Administration Lactated Ringer's 1,000 mls @ 15 mls/hr 10/08/21 06:00 10/08/21 08:37 Lr IV 10/09/21 05:59 15 mls/hr .Q24H YAHAIRA Administration Metoclopramide HCl 10 mg 10/08/21 06:00 10/08/21 08:25 Metoclopramide Hcl 10 Mg Tablet PO 10/08/21 18:00 10 mg PREOP YAHAIRA Administration NPO Date Last Intake of Fluids: 10/08/21 Time Last Intake of Fluids: 06:30 Date Last Intake of Solids: 10/07/21 Time Last Intake of Solids: 19:00 Past Medical History Medical History CAD (coronary artery disease) s/p 2 VASQUEZ to LAD 01/2016, Cx VASQUEZ 2010, follows with [facility] Chronic kidney disease, stage 3a History of COVID-19 12/2020 covid pneumonia- hospitalized - O2 sat has been holding 95 and using O2@ at night per pt. follows with pulmonary [place] Hyperlipidemia Hypertension controlled, stable per pt Hypothyroidism Obesity, morbid, BMI 40.0-49.9 On anticoagulant therapy plavix daily Sleep apnea on supplemental O2 HS Swelling of lower extremity bilat, states has been stable over the past yr Past Family History Family History Mother Family history of reaction to anesthesia nausea/vomiting Ovarian cancer Grandmother (Maternal) Family history of diabetes mellitus Father Myocardial infarction Brother Melanoma Other Cancer Diabetes Heart disease Denies family history of Tuberculosis Prostate cancer Breast cancer Emphysema of lung Colorectal cancer Lung disease Asthma Past Surgical History Surgical History History of appendectomy History of bilateral tubal ligation History of cardiac cath x3--last 2015, follow with [facility] History of carpal tunnel release of both wrists History of colonoscopy History of dilatation and curettage History of heart artery stent x3-- follow with [facility] History of root canal procedure History of tooth extraction all upper teeth removed/some lower History of total abdominal hysterectomy and bilateral salpingo-oophorectomy History of wisdom tooth extraction Social History Smoking Status: Never smoker Do You Dip or Chew Tobacco: No Hx Alcohol Use: No Hx Substance Use: No substance use type: does not use Physical Exam Vital Signs Last Vital Signs Temp 36.6 C 10/08/21 08:13 Pulse 51 L 10/08/21 08:13 Resp 20 10/08/21 08:13 BP 133/73 10/08/21 08:13 Testing Electrocardiogram Date: 01/04/21 Sinus bradycardia with sinus arrhythmia, rate 54 bpm Low voltage QRS Echocardiogram Date: 02/06/16 EF 65-69% No LV segmental wall motion abnormalities No significant valvular dysfunction is detected Mild cLVH Basal septum is thickened and angulated consistent with sigmoid septum Stress Test Date: 04/25/18 Pharmacologic MPHR 57% No induced ischemia EF 67% without regional wall motion abnormalities Non-diagnostic d/t inability to reach target HR Cardiac Catheterization Date: 02/06/16 Prior [place] and previous coronary intervention 02/10/2011 Significant 1 vessel disease PCI proximal LAD and mid LAD successful Left main: no evidence of disease LAD: 70% lesion proximal LAD stented with 2 VASQUEZ Cx: mildly diseased No comment on RCA Other Testing Chest CT 05/12/21 Thoracic aorta: There is mild atherosclerotic calcification of the thoracic aorta, which is normal in caliber and demonstrates bovine variant arch anatomy. Heart: The heart is top normal in size and without pericardial effusion. The coronary arteries are densely calcified. Lungs and pleural spaces: There are persistent subpleural airspace opacities seen throughout both lungs with associated architectural distortion. This has partially cleared as compared to 01/27/2021. There is no lobar consolidation or pleural effusion. Scattered calcified granulomas are observed. The trachea and central airways are clear. There is a 3 mm pleural-based nodule in the right upper lobe on image #58. 6 mm and 5 mm pleural-based nodules in the right middle lobe are seen on images #116 and #127. A 4 mm pleural-based nodular density in the left lower lobe along the major fissure is seen on image #110. A 3 mm right lower lobe nodule is seen on image #145. Naina: Not well assessed without IV contrast Upper abdomen: There is a tiny hiatal hernia. The spleen is mildly enlarged measuring 13.9 cm in length. Skeletal structures: The skeletal structures are osteopenic. Degenerative change is noted in the thoracic spine. No lytic or blastic bony lesions are seen. IMPRESSION: 1. Scattered pulmonary and pleural-based nodules measure up to 6 mm. These are pathologically indeterminant and can be followed as per the Fleischner criteria. 2. There are residual subpleural airspace opacities with associated architectural distortion. This has partially cleared as compared to 01/27/2021. This could represent a resolving pneumonitis versus postinfectious parenchymal scarring. This should also be reassessed at follow-up. 3. No pleural effusion is identified. 4. Additional findings as above. [place] pulm monitoring
--- NOTE | 2021-10-08 10:00 | History & Physical Bridge Note ---
Date of Service October 08, 2021 History & Physical Bridge Note I have examined the patient, reviewed the History & Physical and in the interval since the performance of the History & Physical I have noted the following changes of clinical significance: no changes noted
[2021-10-08] MEDS ORDERED: ORTHO JOINT ANESTHETIC ONE (10:28)
[2021-10-08] MEDS ORDERED: ONDANSETRON INJ 2 MG/ML 2 ML VIAL ONE (12:31)
--- NOTE | 2021-10-08 13:08 | Post Operative Brief Note ---
Immediate Post Op Note v1 Date of Surgery October 08, 2021 Pre & Post Diagnosis Operation Date: 10/08/21 09:45 Pre-Op Diagnosis: Left Knee Osteoarthritis, obesity BMI 42.6 Post-Op Diagnosis: Left Knee Osteoarthritis, obesity BMI 42.6 I identified the patient and participated in the time-out.: Yes Procedure Operation Date: 10/08/21 09:45 Actual Procedures p Left Total Knee Arthroplasty(Left), superficial wound VAC, lateral release, increased difficulty morbid obesity BMI 42.6 Adrian Munoz MD Surgeon Adrian Munoz MD Gyroscope Repairer Leo BRICE Estimated Blood Loss 5 Findings Consistent with Post-Op Diagnosis Specimens Bone cuts Drains Hemovac Drain Anesthesia Type MAC Spinal Regional Complications none Disposition Disposition: Recovery Room Overlapping Procedure I was immediately available: during the entire case.
--- NOTE | 2021-10-08 13:15 | Operative Report ---
Post Operative Report Pre & Post Diagnosis Operation Date: 10/08/21 09:45 Pre-Op Diagnosis: Left Knee Osteoarthritis, morbid obesity BMI 42.6 Post-Op Diagnosis: Left Knee Osteoarthritis, morbid obesity BMI 42.6 I identified the patient and participated in the time-out.: Yes Procedure Operation Date: 10/08/21 09:45 Actual Procedures p Left Total Knee Arthroplasty(Left), lateral release, application superficial wound VAC, increased difficulty more obesity BMI 42.6 Adrian Munoz MD Surgeon Adrian Munoz MD Polisher And Sander Leo BRICE Estimated Blood Loss 5 Findings Consistent with Post-Op Diagnosis Specimens Bone cuts Drains 2 Hemovac Anesthesia Type MAC Spinal Regional Complications none Disposition Disposition: Recovery Room Indications 8-year-old female with chronic left knee pain failed conservative management. Radiographs demonstrates [id number] medial compartment with a varus knee. Description of Procedure Patient was taken to the operating room placed supine on the operating table and anesthetized under spinal MAC regional block anesthesia. Exam under anesthesia demonstrated varus knee slight flexion contracture 5 degrees with 0 through 120 degrees range of motion. Patient obese leg obese thigh. Apneumatic tourniquet was placed about the thigh of the obese left lower extremity. The left lower extremity was prepped and draped in usual sterile fashion. The leg was elevated exsanguinated with an Esmarch bandage and the pneumatic tourniquet was raised to 350 mm mercury. An anterior incision was made across the left knee. The skin was incised longitudinally subcutaneous flaps were elevated and an incision was made through the medial retinaculum extending up into the mid third of the quad riceps tendon and extended down to the medial tibial tubercle. Intra-articular findings demonstrated [id number] medial compartment with eburnated bone mild bone loss. Grade 4 trochlea osteoarthritis grade 2 and 3 patella osteoarthritis. The knee was exposed by excising the infrapatellar fat pad, excising the meniscal remnants and anterior cruciate ligament. Any inflamed synovial tissue was resected. The fat pad over the anterior femur was resected for placement of the component in that area. The lateral synovial bands were release. The femur was exposed. The custom femoral cutting block was pinned in position. The distal femoral cutting block was applied. The distal femoral cut was made with the oscillating saw. Patient had excellent hard bone quality. The size 7, 4-in-1 cutting block was placed. The anterior and posterior chamfer cuts were made. The knee was extended and a subperiosteal peel lateral release was performed around the patella. The patella width was measured and width was reproduced using freehand cut technique. The 32 millimeter symmetrical patella was used. 3 drill holes are made for the pegs. The tibia was exposed. A custom tibial cutting block was positioned and drill holes were made for the cutting guide. Cutting guide was placed and the proximal cut was made with the oscillating saw. All osteophytes were resected. The lamina brand representative was used to assess ligamentous balance and the ligaments were balanced in extension and flexion. Minor medial releases were required only. the tibia was reexposed and measured for a size D tibial component. This was externally rotated in line with the tibial tubercle and the fixation pins were drilled. The proximal tibia was fashioned with the drill and punch. The size 7 CR trial was inserted. The trial MC inserts were used. The 12 mm insert gave balanced ligaments through full range of motion. The patella tracked centrally. the trials were removed. The orthomix anesthetic cocktail was injected per protocol. The knee was then copiously irrigated with pulsatile lavage saline solution. The final components were cemented with Simplex bone cement. The final components were 7 standard CR left femoral component, left D tibial component, 12 mm MC tibial polyethylene insert, 32 symmetrical patella. After the cement cured with the knee in full extension the Betadine soak was used per protocol. The knee joint was copiously irrigated with pulsatile lavage saline solution . 2 drains were brought out laterally and connected to a Hemovac. The quadriceps tendon and medial retinaculum were closed with interrupted [id number] #1 Vicryl sutures. The knee was taken through a full range of motion and repair was secure. The subcutaneous tissues were closed with 2-0 Vicryl sutures and skin was closed with haydee. Jorje and Acticoat superficial wound VAC was applied and the patient tolerated the procedure well. Leo BRICE my physician assistant art director, acted as first aid officer with primary function as first aid officer assisting in all aspects of the procedure including assistance in soft tissue retraction, instrument management ,leg positioning, the closure and will participate in the postoperative care of the patient. Was increased level difficulty due to obesity and this increased surgical time by 20 minutes. I attest to the content of the Intraoperative Record and any orders documented therein. Any exceptions are noted below.
--- NOTE | 2021-10-08 13:37 | XRay Report ---
XR knee LT 1 or 2V routine CLINICAL HISTORY: Postoperative evaluation. COMPARISON: Left knee radiographs December 22, 2005. FINDINGS: Alignment of the total left knee arthroplasty is anatomic. There is no periprosthetic frac ture or unexpected radiopaque foreign body. Skin haydee are noted. There are surgical drains. IMPRESSION: Expected findings following total left knee arthroplasty. ACT 112: Negative or not required by law. Electronically signed by: Chidi Rodarte M.D. 10/08/2021 1:35 PM
--- NOTE | 2021-10-08 13:53 | Anesthesiology Progress Note ---
Date of Service October 08, 2021 Anesthesia Post Procedure Vital Signs Vital Signs: Temp Pulse Pulse Resp BP Pulse Ox 10/08/21 13:45 54 L 16 108/62 92 10/08/21 13:35 73 18 126/69 94 10/08/21 13:25 64 19 100/66 90 10/08/21 13:15 69 16 106/63 100 10/08/21 13:05 36.7 C 74 20 104/59 L 99 10/08/21 08:13 36.6 C 51 L 20 133/73 Transfer of Care Handoff Completed per policy Notes Mental Status: alert / awake / arousable Patient Amnestic to Procedure: Yes Nausea / Vomiting: adequately controlled Pain: adequately controlled Airway Patency, RR, SpO2: stable & adequate BP & HR: stable & adequate Hydration State: stable & adequate Neuraxial Anesthesia: was administered and sensory block is resolving Anesthetic Complications: no major complications apparent
[2021-10-08] MEDS ORDERED: NITROGLYCERIN SL 0.4 MG/TAB TAB SL PRN (14:18)
[2021-10-08] MEDS ORDERED: FUROSEMIDE 20 MG TAB PO PRN (14:18)
[2021-10-08] MEDS ORDERED: HYDROmorphone INJ 0.5 MG/0.5 ML SYR IV PRN (14:18)
[2021-10-08] MEDS ORDERED: METOCLOPRAMIDE HCL INJ 5 MG/ML 2 ML VIAL IV PRN (14:18)
[2021-10-08] MEDS ORDERED: MAGNESIUM HYDROXIDE SUSP 30 ML UDC PO PRN (14:18)
[2021-10-08] MEDS ORDERED: ALBUTEROL HFA 8 GM INHALER INH PRN (14:18)
[2021-10-08] MEDS ORDERED: bisacodyL 10 MG SUPP PR PRN (14:18)
[2021-10-08] MEDS ORDERED: NALOXONE HCL 0.4 MG/1 ML VIAL/CARP IV PRN (14:18)
[2021-10-08] MEDS: SODIUM CHLORIDE 0.9% 1000ML 1,000 ML IV SCH (14:45)
--- NOTE | 2021-10-08 16:40 | Hospitalist Consultation ---
Date of Consultation October 08, 2021 Assessment & Plan (1) Status post arthroscopy of left knee: Pain and VTE management per orthopedics Thank you for the consult will review patient with post operative labs tomorrow (2) Sleep apnea: on nocturnal 2LPM O2 (3) Chronic kidney disease, stage 3a: Monitor BMP in AM (4) Hypertension: Continue on metoprolol tartrate (reduce hold parameters to sBP < 90 and HR < 50) and ISMN Will place hold parameters on lisinopril for hold if sBP <100 and chlorthalidone hold if sBP < 120 (5) Hypercholesterolemia: Continue atorvastatin (6) Nocturnal leg cramps: On no medications for this. She uses mustard at home. (7) CAD (coronary artery disease): 3 stents. Contineu ASA, clopidogrel, metoprolol, lisinopril and atorvastatin No history of heart failure there ok to continue usual post operative fluids VTE Prophylaxis - per orthopedics Diet - heart healthy Disposition - per orthopedics, no acute medical needs History of Present Illness Reason for Consultation: Post op management Attending Physician: Adrian Munoz MD History of Present Illness Neida Erazo is a 66 year old female here for elective left total knee arthroplasty performed today by Dr Munoz. Estimated blood loss 5ml. Patient feeling well post operatively with pain under control. Regional block starting to wear off. No acute concerns or quetions from the patient. She is under Dr Hogan for history of coronary artery disease s/p multiple PCIs most recently in 2015. She denies any usual exertional chest pain or shortness of breath. Allergies Allergy/AdvReac Type Severity Reaction Status Date / Time No Known Drug Allergies Allergy NKDA Verified 10/08/21 08:08 Home Medications Medication Instructions Recorded Confirmed Type aspirin 81 mg tablet,delayed 81 mg PO HS 08/04/18 10/08/21 History release cholecalciferol (vitamin D3) 125 5,000 unit PO QPM 08/04/18 10/08/21 History mcg (5,000 unit) tablet (Vitamin D3) nitroglycerin 0.4 mg sublingual 0.4 mg SUBLINGUAL UD PRN #20 tab 03/12/20 10/06/21 Rx tablet furosemide 20 mg tablet 20 mg PO QAM PRN #30 tab 09/03/20 10/08/21 Rx Pro [place] Joint Extra 2,000 mg PO DAILY 12/31/20 10/08/21 History albuterol sulfate 90 mcg/actuation 1 inh INHALATION QID PRN #8.5 g 01/22/21 10/06/21 Rx aerosol inhaler metoprolol tartrate 25 mg tablet 25 mg PO BID #180 tab 01/22/21 10/08/21 Rx lisinopril 40 mg tablet 40 mg PO QAM #90 tab 02/14/21 10/08/21 Rx Portable Oxygen #2 ea 03/31/21 10/06/21 Rx oxybutynin chloride 10 mg 10 mg PO QAM #90 tab 05/26/21 10/08/21 Rx tablet,extended release 24 hr isosorbide mononitrate 60 mg 60 mg PO QAM #90 tab 08/20/21 10/08/21 Rx tablet,extended release 24 hr chlorthalidone 25 mg tablet 25 mg PO QAM 09/10/21 10/08/21 History atorvastatin 80 mg tablet 80 mg PO HS #90 tab 09/15/21 10/06/21 Rx clopidogrel 75 mg tablet 75 mg PO QAM #90 tab 09/19/21 10/06/21 Rx levothyroxine 50 mcg tablet 50 mcg PO QAM #90 tab 10/06/21 10/06/21 Rx Patient History Medical History CAD (coronary artery disease) s/p 2 VASQUEZ to LAD 01/2016, Cx VASQUEZ 2010, follows with [facility] Chronic kidney disease, stage 3a History of COVID-19 12/2020 covid pneumonia- hospitalized - O2 sat has been holding 95 and using O2@ at night per pt. follows with [facility] Hyperlipidemia Hypertension controlled, stable per pt Hypothyroidism Obesity, morbid, BMI 40.0-49.9 On anticoagulant therapy plavix daily Sleep apnea on supplemental O2 HS Swelling of lower extremity bilat, states has been stable over the past yr Surgical History (Updated 10/08/21 @ 16:57 by Andi Burns MD) History of appendectomy History of bilateral tubal ligation History of cardiac cath x3--last 2015, follow with [facility] History of carpal tunnel release of both wrists History of colonoscopy History of dilatation and curettage History of heart artery stent x3-- follow with [facility] History of root canal procedure History of tooth extraction all upper teeth removed/some lower History of total abdominal hysterectomy and bilateral salpingo-oophorectomy History of wisdom tooth extraction Family History Mother Family history of reaction to anesthesia nausea/vomiting Ovarian cancer Grandmother (Maternal) Family history of diabetes mellitus Father Myocardial infarction Brother Melanoma Other Cancer Diabetes Heart disease Denies family history of Tuberculosis Prostate cancer Breast cancer Emphysema of lung Colorectal cancer Lung disease Asthma Social History Smoking Status: Never smoker packs per day: 1.5; Years Smoked: 9; Number of Years Since Quit: 32; Second Hand Exposure: No; Do You Dip or Chew Tobacco: No; Tobacco Cessation Education Requested by Patient: No Hx Alcohol Use: No Hx Substance Use: No Preferred Language: [place] Citizen Communication Ability: Effective Visual Impairment: No Limitations Hearing Ability: Normal Eligibility Examiner Required: No Beliefs That Will Affect Care: None marital status: Current Living Situation: Spouse current occupational status: unemployed How many Children do You have: 0 Other Information That Helps Us Care for You: No Feels Safe at Home: Yes Safety Concerns: Feels Safe At This Time Dental Care, Regularly: Yes Physical Activity Frequency: Does not Exercise Seatbelt Use: always Sunscreen Use: Yes Assistive Devices: Denture - Upper, Denture - Lower and Glasses Review of Systems Review of Systems: All systems reviewed & are unremarkable except as noted in HPI & below Physical Exam Constitutional: WD/WN, vitals as above Eyes: + anicteric sclerae; normal pupil size ENMT: external ear and nose normal, oropharynx normal Neck: trachea midline, no thyromegaly Respiratory: normal respiratory effort, lungs clear to auscultation Cardiovascular: RRR, no murmur, no edema Gastrointestinal (Abdomen): normal bowel sounds, soft, nontender, no hepatosplenomegaly Musculoskeletal: cap refill in toes on left < 2 s Skin: no rashes, warm and dry Neurologic: moves all extremities and awake; not confused Psychiatric: A+Ox3, euthymic affect Results & Data Results & Data ([facility]) Vital Signs (Past 12 Hours) Vital Signs Temp Pulse Pulse Resp BP Pulse Ox 10/08/21 16:26 36.4 C L 58 L 16 108/69 95 10/08/21 15:27 36.4 C L 56 L 18 124/73 94 10/08/21 14:47 36.5 C 54 L 16 111/70 94 10/08/21 14:15 36.4 C L 64 16 116/71 96 10/08/21 14:05 55 L 14 113/63 98 10/08/21 13:55 36.3 C L 59 L 18 107/67 92 10/08/21 13:45 54 L 16 108/62 92 10/08/21 13:35 73 18 126/69 94 10/08/21 13:25 64 19 100/66 90 10/08/21 13:15 69 16 106/63 100 10/08/21 13:05 36.7 C 74 20 104/59 L 99 10/08/21 08:13 36.6 C 51 L 20 133/73 PG Care Time/CCT Total # of Minutes Spent Total Time Spent with Patient: Total time spent is greater than 50% in coordination of care (as documented) at patient's floor/unit and/or counseling patient: Coding Level of Care Code 27065 Inpt Consult Level 3 Diagnoses Sleep apnea G47.30 Chronic kidney disease, stage 3a N18.31 Hypertension I10 Hypercholesterolemia E78.00 Nocturnal leg cramps G47.62 CAD (coronary artery disease) I25.10 Status post arthroscopy of left knee Z98.890
[2021-10-08] MEDS: ACETAMINOPHEN 500 MG TAB PO SCH (16:42)
[2021-10-08] MEDS: ceFAZolin 2000MG 2,000 MG/15 ML SYR IV SCH (17:48)
[2021-10-08] MEDS: ASPIRIN 81 MG ECTAB PO SCH (20:54)
[2021-10-08] MEDS: DOCUSATE SODIUM 100 MG CAP PO SCH (20:55)
[2021-10-08] MEDS ORDERED: SENNA 8.6 MG TAB PO SCH (21:00)
[2021-10-08] MEDS ORDERED: CHOLECALCIFEROL 5,000 UNITS 125 MCG TAB PO SCH (21:00)
[2021-10-08] MEDS: METOPROLOL TARTRATE 25 MG TAB PO SCH (21:08)
[2021-10-08] MEDS: oxyCODONE HCL IR 5 MG TAB (IMMEDIATE RELEASE) PO PRN (22:17)
[2021-10-09] MEDS: ACETAMINOPHEN 500 MG TAB PO SCH ×2 (00:58→08:21)
[2021-10-09] MEDS: SODIUM CHLORIDE 0.9% 1000ML 1,000 ML IV SCH (01:00)
[2021-10-09] MEDS: ceFAZolin 2000MG 2,000 MG/15 ML SYR IV SCH (01:00)
[2021-10-09] MEDS ORDERED: LEVOTHYROXINE SODIUM 50 MCG TABLET PO SCH (06:30)
[2021-10-09] MEDS: oxyCODONE HCL IR 5 MG TAB (IMMEDIATE RELEASE) PO PRN (06:39)
[2021-10-09 08:06] LABS: Hematocrit (blood only) 30.8 % (37-47); Hemoglobin 10.1 g/dL (12.0-16.0); Mean Corpuscular Hemoglobin 29.8 pg (25-34); Mean Corpuscular Hgb Conc 32.8 g/dL (32-36); Mean Corpuscular Volume 90.9 fL (80-100); Mean Platelet Volume 11.7 fL (7.4-10.4); Platelet Count 162 K/uL (130-400); RDW Coefficient of Variation 12.8 % (11.5-14.5); RDW Standard Deviation 42.6 fL (36.4-46.3); Red Blood Count 3.39 M/uL (4.2-5.4)
[2021-10-09] MEDS: METOPROLOL TARTRATE 25 MG TAB PO SCH (08:23)
[2021-10-09 08:26] LABS: BUN Creatinine Ratio 22.1 (10-20); Calcium 8.3 mg/dl (8.5-10.1); Creatinine Clr Calc Pharmacy 32.6 ml/min; Est GFR (African American) 30.8 ml/min; Est GFR (Non-African American) 26.5 ml/min; Potassium 4.4 mmol/L (3.5-5.1)
[2021-10-09] MEDS: DOCUSATE SODIUM 100 MG CAP PO SCH (08:26)
[2021-10-09] MEDS: ASPIRIN 81 MG ECTAB PO SCH (08:26)
--- NOTE | 2021-10-09 08:41 | Hospitalist Progress Note ---
Date of Service October 09, 2021 Assessment & Plan (1) Status post arthroscopy of left knee: Plan: POD#1 s/p Left Total Knee Arthroplasty(Left), lateral release, application superficial wound VAC, increased difficulty more obesity BMI 42.6 Adrian Munoz MD. EBL 5ml. PT/OT/pain management/bowel regimen per primary service DVT prophylaxis with ASA 81mg BID (also on plavix daily for hx CAD s/p stenting x 3) Will send rx for PPI (2) Sleep apnea: Plan: on nocturnal 2LPM O2 (3) Chronic kidney disease, stage 3a: Plan: Given AM chlorthalidone/lisinopril 40am prior to being able to hold Cr 1.95 but likely from surgery, will place on hold for now/encourage PO intake. repeat in AM/resume tomorrow vs next day pending inpatient course instructed to hold in AM/push oral fluids if plan for discharge today, asymptomatic Per patient, she is having referral to nephrology as an outpatient She does use celebrex, recently restarted (risks discussed per patient by Dr Inman with regards to cardiac/GI symptoms) --> discussed limiting use of NSAIDs with CKD and increased bleeding risk (4) Hypertension: Plan: Continue on metoprolol tartrate (reduce hold parameters to sBP < 90 and HR < 50) and ISMN Given lisinopril/chlorthalidone, BP 134/79 -- see above (5) Hypercholesterolemia: Plan: Continue atorvastatin (6) Nocturnal leg cramps: Plan: On no medications for this. She uses mustard at home. (7) CAD (coronary artery disease): Plan: 3 stents. Contineu ASA, clopidogrel, metoprolol, lisinopril and atorvastatin as outlined Plan: VTE Prophylaxis - per orthopedics ASA BID, plavix THank you for allowing hospitalist service to participate in the care of Ms Erazo. Please call with any questions/concerns. Admission and Anticipated Discharge Date Admission Date: October 08, 2021 Subjective Patient evaluated this morning. Doing well. Pain controlled with ordered medications. Was to hold diuretics this morning but were already given, no SOB/CP or lightheadedness/dizziness reported. Waiting to see how she does with PT but hopeful for discharge. She does have a bathroom on her first floor. Stent x 3 -- 2 in 2011, 1 in 2019. On asa/plavix daily. Discussed PPI and will send rx at d/c. No fever/chills, chest pain, shortness of breath, abdominal pain, nausea or vomiting. Passing lots of gas, no BM yet. Review of Systems Review of Systems: All systems reviewed & are unremarkable except as noted in HPI & below Physical Exam Physical Exam: General: WD/WN obese female sitting up in bed, NAD HEENT: head normocephalic, atraumatic, eyes anicteric, pupils equal, trachea midline Resp: CTAB, no w/c/r, 98% on RA CV: RRR, no m/r/g, no pitting edema, calves non-tender, cap refill wnl GI: +BS throughout, soft, non-tender : no poon MSK/Neuro: NVI, moves all extremities, L knee with dressing in place c/d/i, drain functioning, strength equal dorsiflexion/plantar flexion Psych: AOx3, pleasant and cooperative Results & Data Results & Data ([facility]) Vital Signs (Past 12 Hours) Vital Signs Temp Pulse Resp BP Pulse Ox 10/09/21 07:24 36.6 C 60 14 134/79 98 10/09/21 04:09 36.5 C 74 16 122/76 94 10/08/21 21:33 36.3 C L 52 L 16 126/75 96 10/08/21 20:56 36.3 C L 66 16 105/52 L 95 Laboratory Results 10/09/21 10/09/21 Range/Units 07:41 07:41 WBC 11.00 H (4.8-10.8) K/uL RBC 3.39 L (4.2-5.4) M/uL Hgb 10.1 L (12.0-16.0) g/dL Hct 30.8 L (37-47) % MCV 90.9 (80-100) fL MCH 29.8 (25-34) pg MCHC 32.8 (32-36) g/dL RDW Std Deviation 42.6 (36.4-46.3) fL RDW Coeff of Clare 12.8 (11.5-14.5) % Plt Count 162 (130-400) K/uL MPV 11.7 H (7.4-10.4) fL Sodium 133 L (136-145) mmol/L Potassium 4.4 (3.5-5.1) mmol/L Chloride 105 (98-107) mmol/L Carbon Dioxide 22 (21-32) mmol/L Anion Gap 6 (3-11) BUN 43 H (6-23) mg/dl Creatinine 1.95 H (0.6-1.2) mg/dl Est Cr Clr Drug Dosing 32.6 ml/min Est GFR ( Amer) 30.8 ml/min Est GFR (Non-Af Amer) 26.5 ml/min BUN/Creatinine Ratio 22.1 H (10-20) Glucose 118 H (70-99(Fasting)) mg/dl Calcium 8.3 L (8.5-10.1) mg/dl Diagnostic Findings Knee X-Ray 10/08/21 13:08 XR knee LT 1 or 2V routine CLINICAL HISTORY: Postoperative evaluation. COMPARISON: Left knee radiographs December 22, 2005. FINDINGS: Alignment of the total left knee arthroplasty is anatomic. There is no periprosthetic fracture or unexpected radiopaque foreign body. Skin haydee are noted. There are surgical drains. IMPRESSION: Expected findings following total left knee arthroplasty. ACT 112: Negative or not required by law. Electronically signed by: Chidi Rodarte M.D. 10/08/2021 1:35 PM PG Care Time/CCT Total # of Minutes Spent Total Time Spent with Patient: Total time spent is greater than 50% in coordination of care (as documented) at patient's floor/unit and/or counseling patient: Coding Level of Care Code 94561 Subseq Obs Care Lvl 2 Diagnoses Status post arthroscopy of left knee Z98.890 Sleep apnea G47.30 Chronic kidney disease, stage 3a N18.31 Hypertension I10 Hypercholesterolemia E78.00 Nocturnal leg cramps G47.62 CAD (coronary artery disease) I25.10
[2021-10-09] MEDS ORDERED: ISOSORBIDE MONO EXTENDED REL 60 MG TABCR PO SCH (09:00)
[2021-10-09] MEDS ORDERED: OXYBUTYNIN CHLORIDE XL 5 MG TABCR PO SCH (09:00)
[2021-10-09] MEDS ORDERED: CLOPIDOGREL BISULFATE 75 MG TAB PO SCH (09:00)
[2021-10-09] MEDS ORDERED: CHLORTHALIDONE 25 MG TAB PO SCH (09:00)
[2021-10-09] MEDS ORDERED: lisinopril 40 MG TAB PO SCH (09:00)
[2021-10-09] MEDS ORDERED: MULTIVITAMIN TAB PO SCH (09:00)
[2021-10-09] MEDS ORDERED: FAMOTIDINE 20 MG TAB PO SCH (09:45)
--- NOTE | 2021-10-09 10:03 | Orthopedic Progress Note ---
Date of Service October 09, 2021 Assessment & Plan (1) Primary osteoarthritis of left knee: Plan: Postop day #1 left total knee arthroplasty -PT/OT -Pain management as written. -DVT prophylaxis: Plavix/aspirin, SCDs, teds -AM labs: Hemoglobin down to 10.1 from 11.6 preop. Mild leukocytosis likely reactive asymptomatic. Mild increase in creatinine with history of CKD. Her sodium is at 133 this morning. -Discharge planning: Plan with discharge home with home health PT likely later today if therapy goes well and okay with medicine team. Admission and Anticipated Discharge Date Admission Date: October 08, 2021 Subjective Patient is postop day 1 left total knee. She is doing well this morning. Pain well controlled. Has been ambulating to the bathroom without difficulty. No other complaints. Review of Systems Review of Systems: All systems reviewed & are unremarkable except as noted in Subjective Physical Exam Physical Exam: Left knee: Dressing is clean, dry, intact. Hemovac and shane intact. Toes are mobile no calf tenderness. Good dorsiflexion. Able to straight leg raise. Distally neurovascular status and sensation intact. Constitutional: well developed and well nourished; no acute distress Results & Data ([facility]) Vital Signs (Past 12 Hours) Vital Signs Temp Pulse Resp BP Pulse Ox 10/09/21 07:24 36.6 C 60 14 134/79 98 10/09/21 04:09 36.5 C 74 16 122/76 94 Laboratory Results Lab Results 10/08/21 10/09/21 10/09/21 Range/Units 08:49 07:41 07:41 WBC 11.00 H (4.8-10.8) K/uL RBC 3.39 L (4.2-5.4) M/uL Hgb 10.1 L (12.0-16.0) g/dL Hct 30.8 L (37-47) % MCV 90.9 (80-100) fL MCH 29.8 (25-34) pg MCHC 32.8 (32-36) g/dL RDW Std Deviation 42.6 (36.4-46.3) fL RDW Coeff of Clare 12.8 (11.5-14.5) % Plt Count 162 (130-400) K/uL MPV 11.7 H (7.4-10.4) fL Sodium 133 L (136-145) mmol/L Potassium 4.4 (3.5-5.1) mmol/L Chloride 105 (98-107) mmol/L Carbon Dioxide 22 (21-32) mmol/L Anion Gap 6 (3-11) BUN 43 H (6-23) mg/dl Creatinine 1.95 H (0.6-1.2) mg/dl Est Cr Clr Drug Dosing 32.6 ml/min Est GFR ( Amer) 30.8 ml/min Est GFR (Non-Af Amer) 26.5 ml/min BUN/Creatinine Ratio 22.1 H (10-20) Glucose 118 H (70-99(Fasting)) mg/dl Calcium 8.3 L (8.5-10.1) mg/dl SARS-CoV-2, RNA, NAAT NEGATIVE (NEGATIVE)
--- NOTE | 2021-10-14 19:31 | Discharge Summary ---
Date of Service October 14, 2021 Admission HPI Per Admitting Provider 66 yo female with PMHx significant for CAD, HTN, hypothyroid, GERD, CKD who presents with ongoing left knee pain. Pain is interfering with her daily activities. She has failed conservative measures and would like to proceed with replacement. Patient denies headaches, sweats, fevers, chills, double vision, blurred vision, cough, sore throat, dysphagia, chest pain, sob, wheezing, n/v/d/c, numbness, tingling, fatigue, urinary symptoms, mood disorders. ROS positive for left knee pain and stiffness. Admission Exam Per Admitting Provider Constitutional: well developed and well nourished; no acute distress Eyes: PERRL, conjunctivae normal, anicteric sclerae ENMT: external ear and nose normal, oropharynx normal Neck: trachea midline, no thyromegaly Respiratory: normal respiratory effort, lungs clear to auscultation Cardiovascular: RRR, no murmur, no edema Musculoskeletal: Left knee: Varus alignment mild effusion. Tenderness medial joint line. Stable to valgus and varus stress. ROM 0-115 degrees. Skin: no rashes, warm and dry Neurologic: patellar DTR's 2+ bilat, sensation intact Psychiatric: A+Ox3, euthymic affect Principal Diagnosis Left knee osteoarthritis Discharge Exam Left knee: Dressing is clean, dry, intact. Hemovac and shane intact. Toes are mobile no calf tenderness. Good dorsiflexion. Able to straight leg raise. Distally neurovascular status and sensation intact. Constitutional well developed and well nourished; no acute distress Discharge Data Allergies Allergy/AdvReac Type Severity Reaction Status Date / Time No Known Drug Allergies Allergy NKDA Verified 10/08/21 08:08 Consultations 10/06/21 11:19 Consult Hospitalist Routine Procedures Performed Operation Date: 10/08/21 09:45 Actual Procedures p Left Total Knee Arthroplasty(Left) - Adrian Munoz MD Ordered Studies 10/08/21 05:00 US - OR guided needle placemen Routine Hospital Course (1) Primary osteoarthritis of left knee: Postop day #1 left total knee arthroplasty -PT/OT -Pain management as written. -DVT prophylaxis: Plavix/aspirin, SCDs, teds -AM labs: Hemoglobin down to 10.1 from 11.6 preop. Mild leukocytosis likely reactive asymptomatic. Mild increase in creatinine with history of CKD. Her sodium is at 133 this morning. -Discharge planning: Plan with discharge home with home health PT likely later today if therapy goes well and okay with medicine team. Lab Results 10/08/21 10/09/21 10/09/21 Range/Units 08:49 07:41 07:41 WBC 11.00 H (4.8-10.8) K/uL RBC 3.39 L (4.2-5.4) M/uL Hgb 10.1 L (12.0-16.0) g/dL Hct 30.8 L (37-47) % MCV 90.9 (80-100) fL MCH 29.8 (25-34) pg MCHC 32.8 (32-36) g/dL RDW Std Deviation 42.6 (36.4-46.3) fL RDW Coeff of [place] 12.8 (11.5-14.5) % Plt Count 162 (130-400) K/uL MPV 11.7 H (7.4-10.4) fL Sodium 133 L (136-145) mmol/L Potassium 4.4 (3.5-5.1) mmol/L Chloride 105 (98-107) mmol/L Carbon Dioxide 22 (21-32) mmol/L Anion Gap 6 (3-11) BUN 43 H (6-23) mg/dl Creatinine 1.95 H (0.6-1.2) mg/dl Est Cr Clr Drug Dosing 32.6 ml/min Est GFR ( Amer) 30.8 ml/min Est GFR (Non-Af Amer) 26.5 ml/min BUN/Creatinine Ratio 22.1 H (10-20) Glucose 118 H (70-99(Fasting)) mg/dl Calcium 8.3 L (8.5-10.1) mg/dl SARS-CoV-2, RNA, NAAT NEGATIVE (NEGATIVE) Total Time Total Time Spent Total Time Spent (In Minutes): 20 Discharge Plan Discharge Items Patient Disposition: Home - Home Health Services Reason For Visit: Left Knee Osteoarthritis Discharge Diagnosis: Left knee osteoarthritis Activity: Per Instructions section Non-emergency contact: Surgeon Call non-emergency contact if: you have any medication questions, your pain is concerning for you, you have a fever, your temperature is above 101, your wound has increased redness and your wound has increased drainage Follow-up/Referrals: Za Ramos MD [Primary Care Provider] - Diet: Regular Addtl Attending Provider Instructions: ACTIVITY RECOMMENDATIONS: SELF CARE INSTRUCTIONS AFTER TOTAL KNEE REPLACEMENT A. You may need to continue a physical therapy program after discharge from the hospital. There are several options available to you. Your doctor will assist you in selecting the best one for you. 1. An out-patient facility 2 to 3 times a week for therapy or home therapy. 2. Continue working on all exercises taught to you in the hospital. Your goals should be to increase bending of your knee to 90 degrees and beyond and to fully straighten your knee. B. You may progress at your own pace from walking with a walker or crutches to a cane; then to no assistive devices. C. Make walking a part of your daily routine. Be up as much as comfortable with rest periods throughout the day. Rest with leg elevation is very important. Use the ice wrap frequently for the first 3-4 weeks. D. There are no restrictions on activities. You may ride in a car, shop, participate in school office manager and all social activities. E. Wear the long elastic stockings (ALLISON hose) 20 hours a day for 2 weeks after surgery. They can be removed several times a day for laundering and for a bath. F. You may shower, no tub baths until cleared by your doctor. SPECIAL CARE INSTRUCTIONS: VERY IMPORTANT TO READ AND REVIEW A. There are a few signs you need to watch for after you are home. Call [facility] if you notice any of the followin. Increased severe knee pain. Some pain is expected especially when you exercise. 2. Increased swelling in your leg or knee; pain or swelling of the calf muscle in either lower leg. 3. Any fluid drainage from the incision. 4. Shortness of breath or chest pain. B. Please call [facility] at if you have any concerns or questions about your operation or recovery. The doctor or his nurse will return your call promptly. C. You must take antibiotics before dental work, bladder, bowel or other surgery. Your doctor will provide you with a permanent care to carry describing this precaution. IMPORTANT: * REMEMBER TO TAKE ASPIRIN, 81 MG, TWICE DAILY FOR 4 WEEKS UNLESS OTHERWISE DIRECTED. THIS IS YOUR BLOOD THINNER. * HIGH RISK PATIENTS MAY BE PRESCRIBED A STRONGER BLOOD THINNER. THIS WILL BE PROVIDED AT DISCHARGE. * CALL IF INCREASED PAIN, REDNESS, DRAINAGE OR FEVER GREATER THAT 101. * WEAR ALLISON HOSE 20 HOURS PER DAY FOR 2 WEEKS. This is a large suction dressing covering your incision. This will help pull any excess drainage from the wound and allow your incision to heal properly. You may shower with this if you can keep the unit outside of the shower. If any bleeding or leakage is noted please call your doctor's office. This will remain on your incision for 7 days and then should be removed. This can be done yourself or by the home nursing staff if applicable. The entire unit is disposable once removed. Once removed, keep incision clean and dry. If redness or drainage is noted, please call your surgeon. IF INCISION IS LEAKING THROUGH DRESSING, CALL THE OFFICE . FOLLOW UP VISIT: If appointment is not already scheduled: Please call [facility] to make a follow-up appointment for 2 weeks after your surgery at . Addtl Book Binder Provider Instructions: I have sent a prescription for pepcid for acid blocking. You should limit celebrex use as can have increased risk of bleeding while on the aspirin, plavix, and celebrex. You can talk with Dr Inman about adding protonix in the future if continuing on all of these agents. Stand-Alone Forms: My [facility] [employer], Smoking Cessation Medications and DC Order Prescriptions: New famotidine [Pepcid] 20 mg tablet 20 mg PO DAILY Qty: 30 RF: 0 acetaminophen [Tylenol Extra Strength] 500 mg Tablet 1,000 mg PO Q8H Qty: 60 RF: 0 aspirin 81 mg Tablet,Delayed Release (Dr/Ec) 81 mg PO BID Qty: 60 RF: 0 oxycodone 5 mg Tablet 5 - 10 mg PO .Q4h-6h MDD 6 PRN (Reason: pain) Qty: 30 RF: 0 Continued nitroglycerin 0.4 mg tablet, sublingual 0.4 mg sublingual UD PRN (Reason: Angina) Qty: 20 RF: 2 albuterol sulfate 90 mcg/actuation HFA aerosol inhaler 1 inh inhalation QID PRN (Reason: shortness of breath or wheezing) Qty: 8.5 RF: 4 metoprolol tartrate 25 mg tablet 25 mg PO BID Qty: 180 RF: 3 lisinopril 40 mg tablet 40 mg PO QAM Qty: 90 RF: 3 oxybutynin chloride 10 mg tablet extended release 24hr 10 mg PO QAM Qty: 90 RF: 3 isosorbide mononitrate 60 mg tablet extended release 24 hr 60 mg PO QAM Qty: 90 RF: 3 atorvastatin 80 mg tablet 80 mg PO HS Qty: 90 RF: 3 (DME) Portable Oxygen Misc See Rx Instructions .Route Qty: 2 RF: 0 furosemide 20 mg tablet 20 mg PO QAM PRN (Reason: edema) Qty: 30 RF: 3 clopidogrel 75 mg tablet 75 mg PO QAM Qty: 90 RF: 3 levothyroxine 50 mcg tablet 50 mcg PO QAM Qty: 90 RF: 3 cholecalciferol (vitamin D3) [Vitamin D3] 5,000 unit Tablet 5,000 unit PO QPM RF: 0 chlorthalidone 25 mg tablet 25 mg PO QAM RF: 0 Discontinued Pro [place] Joint Extra 2,000 mg PO DAILY RF: 0 aspirin 81 mg Tablet,Delayed Release (Dr/Ec) 81 mg PO HS RF: 0 Discharge Orders: Discharge Order (Routine); Ordered 10/09/21 Ordered By: Bran Sharma/Other Patient Handouts: ED Osteoarthritis Admission Data Admit Date/Time: 10/08/21 13:08 Attending Provider: Adrian Munoz Admit Provider: Adrian Munoz Primary Care Provider: Za Ramos V. Other Providers: Oniel Peter ; [facility],Home Healthcare Other Interventions: Discharge Summary Assessment (RN) Last Done: 10/09/21 12:12
== END 2021-10-09 13:28 | disposition home health service (06) ==
LOC: 3W 07:47 → ASU 07:47
DX: Z79.899 Other long term (current) drug therapy; M79.4 Hypertrophy of (infrapatellar) fat pad; Z79.02 Long term (current) use of antithrombotics/antiplatelets; M17.12 Unilateral primary osteoarthritis, left knee; M65.862 Other synovitis and tenosynovitis, left lower leg; G47.30 Sleep apnea, unspecified; E03.9 Hypothyroidism, unspecified; Z86.16 Personal history of COVID-19; I12.9 Hypertensive chronic kidney disease with stage 1 through stage 4 chronic kidney disease, or unspecified chronic kidney disease; E66.01 Morbid (severe) obesity due to excess calories; Z79.890 Hormone replacement therapy; Z79.82 Long term (current) use of aspirin; I25.10 Atherosclerotic heart disease of native coronary artery without angina pectoris; N18.31 Chronic kidney disease, stage 3a; Z68.41 Body mass index [BMI] 40.0-44.9, adult; Z99.81 Dependence on supplemental oxygen; E78.00 Pure hypercholesterolemia, unspecified